=== PATIENT | female | born 1975 | race Caucasian/White ===

== ENCOUNTER 2019-12-30 09:31 | Emergency (ER) | payer MEDICAID, OTHER ==
[~2019-12-30] VITALS: Ht 165.1 cm; Wt 82.0 kg
[2019-12-30] MEDS ORDERED: SODIUM CHLORIDE 0.9% 1,000 ML IV ONE (09:40)
[2019-12-30 10:07] LABS: CHLORIDE 103 mEq/L (98-107)
[2019-12-30 10:12] LABS: ETHANOL BLOOD < 10 mg/dL
[2019-12-30 10:14] LABS: HCG SCREEN NEGATIVE
[2019-12-30 10:19] LABS: BASOPHILS % 0.3 % (0.0-2.0); EOSINOPHILS % 0.1 % (0.0-5.0); HEMATOCRIT. 38.8 % (36.0-48.0); HEMOGLOBIN. 12.5 g/dL (12.0-16.0); LYMPHOCYTES % 10.4 % (20.0-50.0); MEAN CORPUSCULAR HEMOGLOBIN 29.4 pg (28.0-32.0); MEAN PLATELET VOLUME 8.1 fl (7.4-10.4); MONOCYTES % 11.4 % (2.0-8.0); NEUTROPHILS % 77.8 % (40.0-76.0); PLATELET 268 x1000/uL (130-400); RED BLOOD CELL COUNT 4.26 mill/uL (4.2-5.4); RED CELL DISTRIBUTION WIDTH 15.1 % (11.6-14.6)
[2019-12-30] MEDS ORDERED: MORPHINE SULFATE 4 MG/ML CPJ (NOT FOR IM USE) IV STA (11:04)
[2019-12-30] MEDS ORDERED: ONDANSETRON HCL 4MG/2ML INJ IV STA (11:04)
[2019-12-30] MEDS ORDERED: ASPIRIN 81MG TABLET PO ONE (11:15)
[2019-12-30] MEDS ORDERED: KETOROLAC 30MG/ML VIAL IV ONE (11:15)
[2019-12-30 11:51] LABS: CLARITY URINE CLEAR (CLEAR); COLOR URINE YELLOW (YELLOW); KETONES URINE NEGATIVE (NEGATIVE); LEUKOCYTE ESTERASE URINE TRACE (NEGATIVE); NITRITE URINE NEGATIVE (NEGATIVE); OCCULT BLOOD URINE TRACE (NEGATIVE); PH URINE 7.5 (4.5-8.0); PROTEIN URINE NEGATIVE (NEGATIVE); SPECIFIC GRAVITY URINE 1.012 (1.005-1.030); UROBILINOGEN URINE 0.2 E.U./dL (0.2-1.0)
[2019-12-30 12:55] LABS: METHADONE URINE SCREEN NEGATIVE (NEGATIVE)
[2019-12-30 12:56] LABS: *AMPHETAMINES SCREEN URINE NEGATIVE (NEGATIVE); *BARBITURATES SCREEN URINE NEGATIVE (NEGATIVE); *BENZODIAZEPINES SCREEN URINE NEGATIVE (NEGATIVE); *COCAINE SCREEN URINE NEGATIVE (NEGATIVE); CANNABINOID URINE SCREEN NEGATIVE (NEGATIVE); OPIATES URINE SCREEN PRESUMTIVE POSITIVE (NEGATIVE); PHENCYCLIDINE URINE SCREEN NEGATIVE (NEGATIVE)
[2019-12-30 15:55] VITALS: BP 137/85
== END 2019-12-30 15:55 | disposition home or self-care (01) ==
LOC: ER 09:44
DX: R07.89 Other chest pain (principal); I10 Essential (primary) hypertension; J45.909 Unspecified asthma, uncomplicated; Z86.718 Personal history of other venous thrombosis and embolism; Z79.01 Long term (current) use of anticoagulants
CPT/HCPCS: 36415; 71045; 78582; 80053; 80305; 80320; 81003; 81025; 83690; 83880; 84484; 84703; 85025; 85379; 93005; 93970; 96374; 96375; 99284; A9540; A9558; J2270; J2405; J7030; Z7610; G0480

== ENCOUNTER 2020-03-27 19:12 | Inpatient (IN) | payer MEDICAID, OTHER ==
[~2020-03-27] VITALS: Ht 165.1 cm; Wt 97.5 kg
[2020-03-27] MEDS ORDERED: MORPHINE SULFATE 4 MG/ML CPJ (NOT FOR IM USE) IV STA (19:48)
[2020-03-27 20:23] LABS: HEMOGLOBIN. 12.6 g/dL (12.0-16.0); MEAN CORPUSCULAR HEMOGLOBIN 28.1 pg (28.0-32.0); MEAN CORPUSCULAR VOLUME 84.9 fL (81.0-99.0); PLATELET 247 x1000/uL (130-400); RED BLOOD CELL COUNT 4.48 mill/uL (4.2-5.4); RED CELL DISTRIBUTION WIDTH 16.6 % (11.6-14.6)
[2020-03-27 20:30] LABS: CHLORIDE 92 mEq/L (98-107)
[2020-03-27 20:38] LABS: BG BASE EXCESS -6.1 mmol/L (-2.0-2.0); BG CARBOXYHEMOGLOBIN 0.5 % (0.5-1.5); BG DEOXYHEMOGLOBIN 15.1 % (0.0-5.0); BG FRACTION INSPIRED OXYGEN 100; BG HCO3 ACT 16.2 mmol/L (22.0-26.0); BG METHEMOGLOBIN 0.1 % (0.0-1.5); BG OXYGEN SATURATION 84.8 % (92.0-98.5); BG OXYHEMOGLOBIN 84.3 % (94.0-97.0); BG PCO2 23.9 mmHg (35.0-45.0); BG PH 7.448 (7.350-7.450); BG PO2 50.5 mmHg (75.0-100.0); BG SAMPLE SITE RIGHT RADIAL; BG TOTAL HEMOGLOBIN 12.8 g/dL (12.0-18.0); BG VENT MODE MASK - NRB
[2020-03-27 20:41] LABS: D-DIMER 6.17 mg/L FEU (<0.50); INR 1.1; PROTHROMBIN TIME 12.1 sec (9.6-11.0)
[2020-03-27 20:49] LABS: PLATELET ESTIMATE NORMAL
[2020-03-27] MEDS ORDERED: ETOMIDATE 2MG/ML 10ML VIAL IV ONE ×2 (22:10→22:30)
[2020-03-27] MEDS ORDERED: VECURONIUM BROMIDE 10 MG/VIAL IV ONE (22:10)
[2020-03-27] MEDS ORDERED: SODIUM CHLORIDE 0.9% 1,000 ML IV ONE (22:15)
[2020-03-27] MEDS ORDERED: PROPOFOL 10MG/ML 100ML 100 ML IV ONE (22:30)
[2020-03-27] MEDS ORDERED: SUCCINYLCHOLINE CHLORIDE 200MG/10ML IV ONE (22:30)
[2020-03-27] MEDS ORDERED: ENOXAPARIN 100MG/ML SYR SUBCUT ONE (23:00)
[2020-03-27] MEDS ORDERED: MIDAZOLAM HCL 50 MG in DEXTROSE 5% WATER 40 ML IV ONE (23:30)
[2020-03-27] MEDS ORDERED: FENTANYL CITRATE/PF 500 MCG in SODIUM CHLORIDE 0.9% 40 ML IV PRN ×4 (23:30)
[2020-03-27 23:42] LABS: BG BASE EXCESS -7.5 mmol/L (-2.0-2.0); BG CARBOXYHEMOGLOBIN 0.5 % (0.5-1.5); BG DEOXYHEMOGLOBIN 6.7 % (0.0-5.0); BG FRACTION INSPIRED OXYGEN 100; BG HCO3 ACT 15.3 mmol/L (22.0-26.0); BG METHEMOGLOBIN 0.3 % (0.0-1.5); BG OXYGEN SATURATION 93.2 % (92.0-98.5); BG OXYHEMOGLOBIN 92.5 % (94.0-97.0); BG PH 7.387 (7.350-7.450); BG PO2 77.5 mmHg (75.0-100.0); BG SAMPLE SITE LEFT RADIAL; BG TIDAL VOLUME(mL) 400 mL; BG TOTAL HEMOGLOBIN 17.8 g/dL (12.0-18.0); BG VENT MODE VENT - A/C; BG VENT RATE 20 set
[2020-03-27 23:44] LABS: CLARITY URINE CLEAR (CLEAR); COLOR URINE YELLOW (YELLOW); KETONES URINE NEGATIVE (NEGATIVE); LEUKOCYTE ESTERASE URINE TRACE (NEGATIVE); NITRITE URINE NEGATIVE (NEGATIVE); OCCULT BLOOD URINE TRACE (NEGATIVE); PH URINE 6.5 (4.5-8.0); PROTEIN URINE 1+ (NEGATIVE); SPECIFIC GRAVITY URINE 1.014 (1.005-1.030); UROBILINOGEN URINE 0.2 E.U./dL (0.2-1.0)
[2020-03-28] VITALS (80 sets, daily range): BP systolic 115–145; BP diastolic 62–97
[2020-03-28] MEDS ORDERED: ENOXAPARIN 100MG/ML SYR SUBCUT NR (00:30)
[2020-03-28] MEDS ORDERED: PROPOFOL 10MG/ML 100ML 100 ML IV PRN ×2 (01:30→13:30)
[2020-03-28] MEDS ORDERED: PIPERACILLIN/TAZ 3.375G PREMIX 50 ML IV SCH (03:30)
[2020-03-28] MEDS ORDERED: SODIUM CHL 0.45% + KCL 20MEQ/L 1,000 ML IV SCH (04:30)
[2020-03-28] MEDS ORDERED: SODIUM BICARBONATE 8.4% 1 MEQ/ML 50ML SYR IV NR (04:45)
[2020-03-28] MEDS ORDERED: FENTANYL CITRATE/PF 1,000 MCG in SODIUM CHLORIDE 0.9% 80 ML IV PRN (04:45)
[2020-03-28] MEDS ORDERED: AZITHROMYCIN 500 MG in DEXT 5% WATER 250 ML IV NR (05:00)
[2020-03-28] MEDS: PROPOFOL 10MG/ML 100ML 100 ML IV PRN ×8 (05:05→23:02)
[2020-03-28] MEDS: FENTANYL 1,000 MCG in SODIUM CHLORIDE 0.9% 100 ML IV PRN ×3 (05:07→21:13)
[2020-03-28] MEDS: METHYLPREDNISOLONE SOD SUCC 40 MG/ML VIAL IV SCH ×3 (05:11→21:12)
[2020-03-28] MEDS: ENOXAPARIN 100MG/ML SYR SUBCUT SCH ×2 (05:12→17:17)
[2020-03-28] MEDS: PIPERACILLIN/TAZOBACTAM 3.375 G in DEXT 5% WATER 100 ML IV SCH ×3 (06:31→21:14)
[2020-03-28] MEDS ORDERED: VANCOMYCIN 1500MG in DEXTROSE 5% WATER 250ML IV NR (08:00)
[2020-03-28 08:20] LABS: BG BASE EXCESS 4.7 mmol/L (-2.0-2.0); BG CARBOXYHEMOGLOBIN 0.3 % (0.5-1.5); BG DEOXYHEMOGLOBIN 7.4 % (0.0-5.0); BG FRACTION INSPIRED OXYGEN 100; BG HCO3 ACT 29.1 mmol/L (22.0-26.0); BG METHEMOGLOBIN 0.1 % (0.0-1.5); BG OXYGEN SATURATION 92.6 % (92.0-98.5); BG OXYHEMOGLOBIN 92.2 % (94.0-97.0); BG PCO2 42.7 mmHg (35.0-45.0); BG PH 7.452 (7.350-7.450); BG PO2 67.3 mmHg (75.0-100.0); BG SAMPLE SITE RIGHT RADIAL; BG TIDAL VOLUME(mL) 400 mL; BG TOTAL HEMOGLOBIN 11.5 g/dL (12.0-18.0); BG VENT MODE VENT - A/C; BG VENT RATE 20 set
[2020-03-28] MEDS: PANTOPRAZOLE SODIUM 40 MG/VIAL IV SCH (08:43)
[2020-03-28] MEDS: IPRATROPIUM/ALBUTEROL 0.5-3(2.5)MG/3ML NEB NEB SCH ×2 (09:25→12:00)
[2020-03-28 10:18] LABS: HEMATOCRIT. 32.1 % (36.0-48.0); HEMOGLOBIN. 10.8 g/dL (12.0-16.0); MEAN CORPUSCULAR HEMOGLOBIN 28.1 pg (28.0-32.0); MEAN CORPUSCULAR VOLUME 83.4 fL (81.0-99.0); MEAN PLATELET VOLUME 7.9 fl (7.4-10.4); PLATELET 171 x1000/uL (130-400); RED BLOOD CELL COUNT 3.85 mill/uL (4.2-5.4); RED CELL DISTRIBUTION WIDTH 16.6 % (11.6-14.6)
[2020-03-28 10:32] LABS: CHLORIDE 98 mEq/L (98-107)
[2020-03-28] MEDS ORDERED: POTASSIUM CHLORIDE 20MEQ TABLET SR PO SCH (11:00)
[2020-03-28] MEDS ORDERED: FUROSEMIDE 20MG/2ML VIAL IVP SCH (11:00)
[2020-03-28 11:20] LABS: PLATELET ESTIMATE NORMAL
[2020-03-28] MEDS ORDERED: POTASSIUM CHLORIDE 20MEQ/PACKET NG NR (11:45)
[2020-03-28] MEDS: ASCORBIC ACID 500 MG TABLET PO SCH ×2 (12:12→21:15)
[2020-03-28] MEDS: ZINC SULFATE 220 MG ( 50 ) CAPSULE PO SCH (12:12)
[2020-03-28] MEDS ORDERED: VANCOMYCIN 1500MG in DEXTROSE 5% WATER 250ML IV SCH (16:00)
[2020-03-28] MEDS: HYDROXYCHLOROQUINE SULFATE 200MG TABLET PO SCH (17:57)
[2020-03-29] VITALS (57 sets, daily range): BP systolic 120–154; BP diastolic 56–98
[2020-03-29] MEDS: FENTANYL CITRATE/PF 2,500 MCG in SODIUM CHLORIDE 0.9% 200 ML IV PRN ×3 (01:31→18:43)
[2020-03-29] MEDS: PROPOFOL 10MG/ML 100ML 100 ML IV PRN ×6 (02:18→21:35)
[2020-03-29] MEDS: ENOXAPARIN 100MG/ML SYR SUBCUT SCH ×2 (05:29→18:10)
[2020-03-29] MEDS: PIPERACILLIN/TAZOBACTAM 3.375 G in DEXT 5% WATER 100 ML IV SCH ×3 (05:29→21:33)
[2020-03-29] MEDS: METHYLPREDNISOLONE SOD SUCC 40 MG/ML VIAL IV SCH ×3 (05:29→21:32)
[2020-03-29 06:02] LABS: HEMATOCRIT. 30.9 % (36.0-48.0); HEMOGLOBIN. 10.4 g/dL (12.0-16.0); MEAN CORPUSCULAR HEMOGLOBIN 28.5 pg (28.0-32.0); MEAN CORPUSCULAR VOLUME 84.5 fL (81.0-99.0); MEAN PLATELET VOLUME 8.7 fl (7.4-10.4); PLATELET 211 x1000/uL (130-400); RED BLOOD CELL COUNT 3.66 mill/uL (4.2-5.4); RED CELL DISTRIBUTION WIDTH 17.2 % (11.6-14.6)
[2020-03-29 06:03] LABS: CHLORIDE 100 mEq/L (98-107)
[2020-03-29 06:23] LABS: CREATINE KINASE 248 IU/L (26-192)
[2020-03-29 08:46] LABS: BG BASE EXCESS 6.5 mmol/L (-2.0-2.0); BG CARBOXYHEMOGLOBIN 0.3 % (0.5-1.5); BG FRACTION INSPIRED OXYGEN 100; BG HCO3 ACT 31.9 mmol/L (22.0-26.0); BG METHEMOGLOBIN 0.3 % (0.0-1.5); BG OXYHEMOGLOBIN 97.4 % (94.0-97.0); BG PCO2 49.6 mmHg (35.0-45.0); BG PH 7.426 (7.350-7.450); BG PO2 113.1 mmHg (75.0-100.0); BG SAMPLE SITE RIGHT RADIAL; BG TIDAL VOLUME(mL) 400 mL; BG TOTAL HEMOGLOBIN 11.2 g/dL (12.0-18.0); BG VENT MODE VENT - PCV; BG VENT RATE 16 set
[2020-03-29] MEDS: AZITHROMYCIN 250 MG in DEXT 5% WATER 250 ML IV SCH (08:58)
[2020-03-29] MEDS: HYDROXYCHLOROQUINE SULFATE 200MG TABLET PO SCH ×2 (08:59→17:00)
[2020-03-29] MEDS: PANTOPRAZOLE SODIUM 40 MG/VIAL IV SCH (08:59)
[2020-03-29] MEDS: ZINC SULFATE 220 MG ( 50 ) CAPSULE PO SCH (08:59)
[2020-03-29] MEDS: ASCORBIC ACID 500 MG TABLET PO SCH ×2 (08:59→21:32)
[2020-03-29 10:31] LABS: C REACTIVE PROTEIN QUANT > 190.0 mg/L (0.0-3.0)
[2020-03-29] MEDS ORDERED: FUROSEMIDE 20MG/2ML VIAL IVP NR (11:00)
[2020-03-29 11:52] LABS: PLATELET ESTIMATE NORMAL
[2020-03-29] MEDS: ALBUTEROL 6.7GM HFA INHALER ORI SCH ×3 (12:10→20:25)
[2020-03-29] MEDS ORDERED: PROPOFOL 10MG/ML 100ML 100 ML IV PRN (13:45)
[2020-03-30] VITALS (83 sets, daily range): BP systolic 111–149; BP diastolic 56–103
[2020-03-30] MEDS: PROPOFOL 10MG/ML 100ML 100 ML IV PRN ×7 (00:59→22:11)
[2020-03-30] MEDS: MIDAZOLAM HCL 100 MG in DEXT 5% WATER 80 ML IV PRN ×2 (01:44→15:25)
[2020-03-30] MEDS: FENTANYL CITRATE/PF 2,500 MCG in SODIUM CHLORIDE 0.9% 200 ML IV PRN ×3 (02:45→20:54)
[2020-03-30] MEDS: ALBUTEROL 6.7GM HFA INHALER ORI SCH ×4 (04:30→20:35)
[2020-03-30] MEDS: ENOXAPARIN 100MG/ML SYR SUBCUT SCH ×2 (05:30→17:32)
[2020-03-30] MEDS: PIPERACILLIN/TAZOBACTAM 3.375 G in DEXT 5% WATER 100 ML IV SCH ×3 (05:30→21:01)
[2020-03-30] MEDS: METHYLPREDNISOLONE SOD SUCC 40 MG/ML VIAL IV SCH ×3 (05:30→21:01)
[2020-03-30 05:45] LABS: HEMATOCRIT. 29.9 % (36.0-48.0); HEMOGLOBIN. 9.8 g/dL (12.0-16.0); MEAN CORPUSCULAR HEMOGLOBIN 28.1 pg (28.0-32.0); MEAN CORPUSCULAR VOLUME 85.4 fL (81.0-99.0); MEAN PLATELET VOLUME 8.4 fl (7.4-10.4); PLATELET 244 x1000/uL (130-400); RED CELL DISTRIBUTION WIDTH 17.1 % (11.6-14.6)
[2020-03-30 05:57] LABS: CHLORIDE 100 mEq/L (98-107)
[2020-03-30] MEDS: ZINC SULFATE 220 MG ( 50 ) CAPSULE PO SCH (08:16)
[2020-03-30] MEDS: ASCORBIC ACID 500 MG TABLET PO SCH ×2 (08:16→21:01)
[2020-03-30] MEDS: HYDROXYCHLOROQUINE SULFATE 200MG TABLET PO SCH ×2 (08:16→16:35)
[2020-03-30] MEDS: PANTOPRAZOLE SODIUM 40 MG/VIAL IV SCH (08:16)
[2020-03-30 08:26] LABS: BG BASE EXCESS 9.7 mmol/L (-2.0-2.0); BG CARBOXYHEMOGLOBIN 0.3 % (0.5-1.5); BG DEOXYHEMOGLOBIN 0.9 % (0.0-5.0); BG FRACTION INSPIRED OXYGEN 90; BG HCO3 ACT 35.5 mmol/L (22.0-26.0); BG METHEMOGLOBIN 0.2 % (0.0-1.5); BG OXYGEN SATURATION 99.1 % (92.0-98.5); BG OXYHEMOGLOBIN 98.6 % (94.0-97.0); BG PCO2 55.3 mmHg (35.0-45.0); BG PH 7.425 (7.350-7.450); BG PO2 233.3 mmHg (75.0-100.0); BG SAMPLE SITE RIGHT RADIAL; BG TIDAL VOLUME(mL) 400 mL; BG TOTAL HEMOGLOBIN 9.9 g/dL (12.0-18.0); BG VENT MODE VENT - PCV; BG VENT RATE 16 set
[2020-03-30 08:39] LABS: PLATELET ESTIMATE NORMAL
[2020-03-30 09:06] LABS: ANTI-DNA DOUBLE STRANDED QUANT 4 IU/mL (0-9); RNP ANTIBODY 2.6 AI (0.0-0.9); SMITH ANTIBODY < 0.2 AI (0.0-0.9)
[2020-03-30] MEDS: AZITHROMYCIN 250 MG in DEXT 5% WATER 250 ML IV SCH (09:59)
[2020-03-30] MEDS ORDERED: FUROSEMIDE 20MG/2ML VIAL IVP ONE (12:00)
[2020-03-31] VITALS (93 sets, daily range): BP systolic 98–143; BP diastolic 46–95
[2020-03-31] MEDS: MIDAZOLAM HCL 100 MG in DEXT 5% WATER 80 ML IV PRN ×3 (00:57→23:22)
[2020-03-31] MEDS: ALBUTEROL 6.7GM HFA INHALER ORI SCH ×4 (01:59→20:45)
[2020-03-31] MEDS: PROPOFOL 10MG/ML 100ML 100 ML IV PRN ×4 (03:36→19:08)
[2020-03-31] MEDS: PIPERACILLIN/TAZOBACTAM 3.375 G in DEXT 5% WATER 100 ML IV SCH ×3 (05:09→21:06)
[2020-03-31] MEDS: ENOXAPARIN 100MG/ML SYR SUBCUT SCH ×2 (05:09→17:01)
[2020-03-31] MEDS: METHYLPREDNISOLONE SOD SUCC 40 MG/ML VIAL IV SCH ×3 (05:09→21:06)
[2020-03-31 05:15] LABS: HEMOGLOBIN. 9.7 g/dL (12.0-16.0); MEAN CORPUSCULAR HEMOGLOBIN 28.2 pg (28.0-32.0); MEAN PLATELET VOLUME 8.6 fl (7.4-10.4); PLATELET 256 x1000/uL (130-400); RED BLOOD CELL COUNT 3.45 mill/uL (4.2-5.4)
[2020-03-31 05:33] LABS: CHLORIDE 102 mEq/L (98-107)
[2020-03-31] MEDS: FENTANYL CITRATE/PF 2,500 MCG in SODIUM CHLORIDE 0.9% 200 ML IV PRN ×2 (06:42→15:55)
[2020-03-31 07:27] LABS: PLATELET ESTIMATE NORMAL
[2020-03-31] MEDS: HYDROXYCHLOROQUINE SULFATE 200MG TABLET PO SCH ×2 (08:08→17:01)
[2020-03-31] MEDS: AZITHROMYCIN 250 MG in DEXT 5% WATER 250 ML IV SCH (08:08)
[2020-03-31] MEDS: PANTOPRAZOLE SODIUM 40 MG/VIAL IV SCH (08:08)
[2020-03-31] MEDS: ASCORBIC ACID 500 MG TABLET PO SCH ×2 (08:09→21:06)
[2020-03-31] MEDS: ZINC SULFATE 220 MG ( 50 ) CAPSULE PO SCH (08:09)
[2020-03-31 09:06] LABS: ANGIOTENSION CONVERTING ENZYME 32 U/L (14-82)
[2020-03-31 09:52] LABS: BG BASE EXCESS 8.1 mmol/L (-2.0-2.0); BG CARBOXYHEMOGLOBIN 0.3 % (0.5-1.5); BG DEOXYHEMOGLOBIN 6.4 % (0.0-5.0); BG FRACTION INSPIRED OXYGEN 50; BG HCO3 ACT 34.2 mmol/L (22.0-26.0); BG METHEMOGLOBIN 0.6 % (0.0-1.5); BG OXYGEN SATURATION 93.5 % (92.0-98.5); BG OXYHEMOGLOBIN 92.7 % (94.0-97.0); BG PH 7.411 (7.350-7.450); BG PO2 71.9 mmHg (75.0-100.0); BG SAMPLE SITE LEFT RADIAL; BG TIDAL VOLUME(mL) 400 mL; BG TOTAL HEMOGLOBIN 11.7 g/dL (12.0-18.0); BG VENT MODE VENT - PCV; BG VENT RATE 18 set
[2020-03-31 13:11] LABS: ANTI-CARDIOLIPIN AB IGA < 9 APL U/mL (0-11); ANTI-CARDIOLIPIN AB IGG < 9 GPL U/mL (0-14); ANTI-CARDIOLIPIN AB IGM 9 MPL U/mL (0-12); ATYPICAL P-ANCA <1:20 titer (Neg:<1:20); CYTOPLASMIC C-ANCA <1:20 titer (Neg:<1:20); PERINUCLEAR P-ANCA <1:20 titer (Neg:<1:20); PTT-LA 46.4 sec (0.0-51.9)
[2020-03-31 17:06] LABS: ANA IFA Negative (.)
[2020-04-01] VITALS (57 sets, daily range): BP systolic 103–149; BP diastolic 49–92
[2020-04-01] MEDS: PROPOFOL 10MG/ML 100ML 100 ML IV PRN ×5 (00:12→22:27)
[2020-04-01] MEDS: FENTANYL CITRATE/PF 2,500 MCG in SODIUM CHLORIDE 0.9% 200 ML IV PRN ×2 (00:42→19:21)
[2020-04-01] MEDS: ALBUTEROL 6.7GM HFA INHALER ORI SCH ×4 (03:45→16:29)
[2020-04-01] MEDS: PIPERACILLIN/TAZOBACTAM 3.375 G in DEXT 5% WATER 100 ML IV SCH ×3 (06:19→21:09)
[2020-04-01] MEDS: METHYLPREDNISOLONE SOD SUCC 40 MG/ML VIAL IV SCH ×3 (06:19→21:09)
[2020-04-01] MEDS: ENOXAPARIN 100MG/ML SYR SUBCUT SCH ×2 (06:20→18:00)
[2020-04-01] MEDS: ASCORBIC ACID 500 MG TABLET PO SCH ×2 (08:44→21:09)
[2020-04-01] MEDS: ZINC SULFATE 220 MG ( 50 ) CAPSULE PO SCH (08:44)
[2020-04-01] MEDS: AZITHROMYCIN 250 MG in DEXT 5% WATER 250 ML IV SCH (08:44)
[2020-04-01] MEDS: PANTOPRAZOLE SODIUM 40 MG/VIAL IV SCH (08:44)
[2020-04-01] MEDS: HYDROXYCHLOROQUINE SULFATE 200MG TABLET PO SCH ×2 (08:45→17:00)
[2020-04-01 08:47] LABS: BG BASE EXCESS 11.9 mmol/L (-2.0-2.0); BG CARBOXYHEMOGLOBIN 0.3 % (0.5-1.5); BG DEOXYHEMOGLOBIN 4.3 % (0.0-5.0); BG FRACTION INSPIRED OXYGEN 50; BG HCO3 ACT 38.4 mmol/L (22.0-26.0); BG OXYGEN SATURATION 95.7 % (92.0-98.5); BG OXYHEMOGLOBIN 95.4 % (94.0-97.0); BG PCO2 61.1 mmHg (35.0-45.0); BG PH 7.416 (7.350-7.450); BG PO2 82.9 mmHg (75.0-100.0); BG SAMPLE SITE RIGHT RADIAL; BG TIDAL VOLUME(mL) 400 mL; BG TOTAL HEMOGLOBIN 10.3 g/dL (12.0-18.0); BG VENT MODE PRVC; BG VENT RATE 18 set
[2020-04-01] MEDS: MIDAZOLAM HCL 100 MG in DEXT 5% WATER 80 ML IV PRN (21:57)
[2020-04-02] VITALS (59 sets, daily range): BP systolic 104–177; BP diastolic 56–117
[2020-04-02] MEDS: PROPOFOL 10MG/ML 100ML 100 ML IV PRN ×2 (03:42→09:45)
[2020-04-02] MEDS: MIDAZOLAM HCL 100 MG in DEXT 5% WATER 80 ML IV PRN ×2 (04:09→15:00)
[2020-04-02] MEDS: PIPERACILLIN/TAZOBACTAM 3.375 G in DEXT 5% WATER 100 ML IV SCH ×3 (05:04→21:52)
[2020-04-02] MEDS: ENOXAPARIN 100MG/ML SYR SUBCUT SCH ×2 (05:05→13:51)
[2020-04-02] MEDS: METHYLPREDNISOLONE SOD SUCC 40 MG/ML VIAL IV SCH ×3 (05:05→21:49)
[2020-04-02 05:13] LABS: HEMATOCRIT. 29.3 % (36.0-48.0); HEMOGLOBIN. 9.4 g/dL (12.0-16.0); MEAN CORPUSCULAR VOLUME 86.9 fL (81.0-99.0); MEAN PLATELET VOLUME 8.7 fl (7.4-10.4); PLATELET 298 x1000/uL (130-400); RED BLOOD CELL COUNT 3.37 mill/uL (4.2-5.4); RED CELL DISTRIBUTION WIDTH 16.9 % (11.6-14.6)
[2020-04-02 05:20] LABS: CHLORIDE 104 mEq/L (98-107)
[2020-04-02] MEDS: ALBUTEROL 6.7GM HFA INHALER ORI SCH ×4 (07:30→14:10)
[2020-04-02] MEDS: ASCORBIC ACID 500 MG TABLET PO SCH ×2 (08:45→20:51)
[2020-04-02] MEDS: PANTOPRAZOLE SODIUM 40 MG/VIAL IV SCH (08:46)
[2020-04-02] MEDS: ZINC SULFATE 220 MG ( 50 ) CAPSULE PO SCH (08:46)
[2020-04-02] MEDS: HYDROXYCHLOROQUINE SULFATE 200MG TABLET PO SCH ×2 (08:46→17:00)
[2020-04-02 09:46] LABS: BG BASE EXCESS 8.3 mmol/L (-2.0-2.0); BG CARBOXYHEMOGLOBIN 0.2 % (0.5-1.5); BG DEOXYHEMOGLOBIN 3.9 % (0.0-5.0); BG FRACTION INSPIRED OXYGEN 40; BG HCO3 ACT 33.6 mmol/L (22.0-26.0); BG METHEMOGLOBIN 0.2 % (0.0-1.5); BG OXYGEN SATURATION 96.1 % (92.0-98.5); BG OXYHEMOGLOBIN 95.7 % (94.0-97.0); BG PCO2 50.8 mmHg (35.0-45.0); BG PH 7.438 (7.350-7.450); BG PO2 82.9 mmHg (75.0-100.0); BG SAMPLE SITE RIGHT RADIAL; BG TIDAL VOLUME(mL) 400 mL; BG TOTAL HEMOGLOBIN 9.9 g/dL (12.0-18.0); BG VENT MODE PRVC; BG VENT RATE 18 set
[2020-04-02] MEDS: AMLODIPINE 5MG TABLET PO SCH ×2 (13:50→20:52)
[2020-04-02 14:06] LABS: PLATELET ESTIMATE NORMAL
[2020-04-02 17:10] LABS: ANTI-PROTEINASE 3 ABS < 3.5 U/mL (0.0-3.5)
[2020-04-02] MEDS ORDERED: CLONIDINE 0.1MG TABLET PO NR (19:00)
[2020-04-02 19:06] LABS: ANTI-MYELOPEROXIDASE AB < 9.0 U/mL (0.0-9.0)
[2020-04-03] VITALS (37 sets, daily range): BP systolic 123–170; BP diastolic 82–106
[2020-04-03 04:55] LABS: HEMATOCRIT. 35.3 % (36.0-48.0); HEMOGLOBIN. 11.4 g/dL (12.0-16.0); MEAN CORPUSCULAR HEMOGLOBIN 27.9 pg (28.0-32.0); MEAN CORPUSCULAR VOLUME 86.1 fL (81.0-99.0); PLATELET 385 x1000/uL (130-400); RED CELL DISTRIBUTION WIDTH 16.9 % (11.6-14.6)
[2020-04-03 05:08] LABS: CHLORIDE 101 mEq/L (98-107)
[2020-04-03] MEDS: METHYLPREDNISOLONE SOD SUCC 40 MG/ML VIAL IV SCH ×3 (05:54→20:34)
[2020-04-03] MEDS: ENOXAPARIN 100MG/ML SYR SUBCUT SCH ×2 (06:00→17:22)
[2020-04-03] MEDS: PANTOPRAZOLE SODIUM 40 MG/VIAL IV SCH (09:04)
[2020-04-03] MEDS: ASCORBIC ACID 500 MG TABLET PO SCH ×2 (09:05→20:34)
[2020-04-03] MEDS: ZINC SULFATE 220 MG ( 50 ) CAPSULE PO SCH (09:05)
[2020-04-03] MEDS: AMLODIPINE 5MG TABLET PO SCH ×2 (09:05→20:34)
[2020-04-03] MEDS: HYDROXYCHLOROQUINE SULFATE 200MG TABLET PO SCH ×2 (09:05→17:22)
[2020-04-03 09:28] LABS: BG BASE EXCESS 2.3 mmol/L (-2.0-2.0); BG CARBOXYHEMOGLOBIN 0.3 % (0.5-1.5); BG DEOXYHEMOGLOBIN 0.9 % (0.0-5.0); BG FRACTION INSPIRED OXYGEN 99.8; BG HCO3 ACT 26.4 mmol/L (22.0-26.0); BG METHEMOGLOBIN 0.2 % (0.0-1.5); BG OXYGEN SATURATION 99.1 % (92.0-98.5); BG OXYHEMOGLOBIN 98.6 % (94.0-97.0); BG PCO2 39.3 mmHg (35.0-45.0); BG PH 7.445 (7.350-7.450); BG PO2 215.2 mmHg (75.0-100.0); BG SAMPLE SITE RIGHT RADIAL; BG TOTAL HEMOGLOBIN 12.3 g/dL (12.0-18.0); BG VENT MODE MASK - NRB
[2020-04-03 11:24] LABS: PLATELET ESTIMATE NORMAL
[2020-04-04] VITALS: BP 114/85
[2020-04-04] MEDS: ALBUTEROL 6.7GM HFA INHALER ORI SCH ×5 (01:26→21:59)
[2020-04-04 04:00] VITALS: BP 138/90
[2020-04-04] MEDS: METHYLPREDNISOLONE SOD SUCC 40 MG/ML VIAL IV SCH ×3 (05:04→21:46)
[2020-04-04] MEDS: ENOXAPARIN 100MG/ML SYR SUBCUT SCH ×3 (05:05→17:37)
[2020-04-04 07:46] VITALS: BP 128/68
[2020-04-04] MEDS: PANTOPRAZOLE SODIUM 40 MG/VIAL IV SCH (08:33)
[2020-04-04] MEDS: ZINC SULFATE 220 MG ( 50 ) CAPSULE PO SCH (08:34)
[2020-04-04] MEDS: HYDROXYCHLOROQUINE SULFATE 200MG TABLET PO SCH ×2 (08:34→17:15)
[2020-04-04] MEDS: ASCORBIC ACID 500 MG TABLET PO SCH ×2 (08:34→21:46)
[2020-04-04] MEDS: AMLODIPINE 5MG TABLET PO SCH ×2 (10:17→21:46)
[2020-04-04 12:00] VITALS: BP 123/81
[2020-04-04 16:00] VITALS: BP 132/82
[2020-04-04 20:00] VITALS: BP 132/77
[2020-04-05] VITALS: BP 129/80
[2020-04-05] MEDS: ALBUTEROL 6.7GM HFA INHALER ORI SCH ×4 (02:50→21:28)
[2020-04-05 04:00] VITALS: BP_SYST 122; BP_SYST 131; BP_DIAS 78; BP_DIAS 80
[2020-04-05] MEDS: METHYLPREDNISOLONE SOD SUCC 40 MG/ML VIAL IV SCH ×3 (05:33→21:29)
[2020-04-05] MEDS: ENOXAPARIN 100MG/ML SYR SUBCUT SCH ×3 (05:33→17:38)
[2020-04-05 08:00] VITALS: BP 120/82
[2020-04-05] MEDS: HYDROXYCHLOROQUINE SULFATE 200MG TABLET PO SCH ×2 (08:52→17:38)
[2020-04-05] MEDS: AMLODIPINE 5MG TABLET PO SCH ×2 (08:52→21:29)
[2020-04-05] MEDS: ASCORBIC ACID 500 MG TABLET PO SCH ×2 (08:52→21:29)
[2020-04-05] MEDS: ZINC SULFATE 220 MG ( 50 ) CAPSULE PO SCH (08:52)
[2020-04-05] MEDS: PANTOPRAZOLE SODIUM 40 MG/VIAL IV SCH (08:52)
[2020-04-05 12:00] VITALS: BP 124/79
[2020-04-05 16:00] VITALS: BP 108/59
[2020-04-05] MEDS: HYDROCODONE/ACETAMINOPHEN 5/325MG TABLET PO PRN (17:39)
[2020-04-05 20:00] VITALS: BP 141/75
[2020-04-06] VITALS: BP 129/74
[2020-04-06] MEDS: ALBUTEROL 6.7GM HFA INHALER ORI SCH ×4 (02:42→22:52)
[2020-04-06 04:00] VITALS: BP 122/72
[2020-04-06] MEDS: METHYLPREDNISOLONE SOD SUCC 40 MG/ML VIAL IV SCH ×3 (05:55→21:52)
[2020-04-06] MEDS: ENOXAPARIN 100MG/ML SYR SUBCUT SCH ×2 (05:55→17:55)
[2020-04-06 08:00] VITALS: BP 108/72
[2020-04-06] MEDS: HYDROXYCHLOROQUINE SULFATE 200MG TABLET PO SCH ×2 (08:46→15:58)
[2020-04-06] MEDS: ASCORBIC ACID 500 MG TABLET PO SCH ×2 (08:46→21:47)
[2020-04-06] MEDS: ZINC SULFATE 220 MG ( 50 ) CAPSULE PO SCH (08:46)
[2020-04-06] MEDS: PANTOPRAZOLE SODIUM 40 MG/VIAL IV SCH (08:46)
[2020-04-06] MEDS: AMLODIPINE 5MG TABLET PO SCH ×2 (08:46→21:46)
[2020-04-06] MEDS: HYDROCODONE/ACETAMINOPHEN 5/325MG TABLET PO PRN ×3 (08:46→22:10)
[2020-04-06 12:00] VITALS: BP 111/73
[2020-04-06] MEDS ORDERED: MORPHINE SULFATE 2 MG/ML CPJ (NOT FOR IM USE) IV SCH (13:00)
[2020-04-06 16:00] VITALS: BP_SYST 117
[2020-04-06 20:00] VITALS: BP 120/78
[2020-04-07] VITALS: BP 113/82
[2020-04-07 04:00] VITALS: BP 138/74
[2020-04-07] MEDS: ALBUTEROL 6.7GM HFA INHALER ORI SCH ×4 (04:06→21:09)
[2020-04-07] MEDS: METHYLPREDNISOLONE SOD SUCC 40 MG/ML VIAL IV SCH ×3 (06:18→21:09)
[2020-04-07] MEDS: ENOXAPARIN 100MG/ML SYR SUBCUT SCH ×2 (06:19→17:14)
[2020-04-07] MEDS: HYDROCODONE/ACETAMINOPHEN 5/325MG TABLET PO PRN ×2 (06:34→10:10)
[2020-04-07 08:00] VITALS: BP 114/73
[2020-04-07] MEDS: AMLODIPINE 5MG TABLET PO SCH ×2 (09:08→21:10)
[2020-04-07] MEDS: ASCORBIC ACID 500 MG TABLET PO SCH ×2 (09:08→21:09)
[2020-04-07] MEDS: PANTOPRAZOLE SODIUM 40 MG/VIAL IV SCH (09:08)
[2020-04-07] MEDS: HYDROXYCHLOROQUINE SULFATE 200MG TABLET PO SCH ×2 (09:08→17:13)
[2020-04-07] MEDS: ZINC SULFATE 220 MG ( 50 ) CAPSULE PO SCH (09:08)
[2020-04-07 12:00] VITALS: BP 114/73
[2020-04-07] MEDS ORDERED: MORPHINE SULFATE 2 MG/ML CPJ (NOT FOR IM USE) IV NR (13:15)
[2020-04-07] MEDS ORDERED: OXYCODONE HCL/ACETAMINOPHEN 5/325MG TABLET PO PRN (13:15)
[2020-04-07 20:00] VITALS: BP 117/76
[2020-04-07] MEDS: OXYCODONE HCL/ACETAMINOPHEN 5/325MG TABLET PO PRN (21:11)
[2020-04-08] VITALS: BP 138/76
[2020-04-08] MEDS: ALBUTEROL 6.7GM HFA INHALER ORI SCH ×4 (03:19→22:28)
[2020-04-08] MEDS: OXYCODONE HCL/ACETAMINOPHEN 5/325MG TABLET PO PRN ×5 (03:21→22:26)
[2020-04-08 04:00] VITALS: BP 110/78
[2020-04-08] MEDS: METHYLPREDNISOLONE SOD SUCC 40 MG/ML VIAL IV SCH ×3 (05:46→22:28)
[2020-04-08] MEDS: ENOXAPARIN 100MG/ML SYR SUBCUT SCH ×2 (05:46→17:11)
[2020-04-08 08:00] VITALS: BP 110/75
[2020-04-08] MEDS: PANTOPRAZOLE SODIUM 40 MG/VIAL IV SCH (08:18)
[2020-04-08] MEDS: ZINC SULFATE 220 MG ( 50 ) CAPSULE PO SCH (08:20)
[2020-04-08] MEDS: AMLODIPINE 5MG TABLET PO SCH ×2 (08:20→22:28)
[2020-04-08] MEDS: ASCORBIC ACID 500 MG TABLET PO SCH ×2 (08:20→22:26)
[2020-04-08] MEDS: HYDROXYCHLOROQUINE SULFATE 200MG TABLET PO SCH ×2 (08:20→17:10)
[2020-04-08 08:22] LABS: HEMATOCRIT. 37.8 % (36.0-48.0); HEMOGLOBIN. 12.2 g/dL (12.0-16.0); MEAN CORPUSCULAR VOLUME 86.8 fL (81.0-99.0); MEAN PLATELET VOLUME 9.1 fl (7.4-10.4); PLATELET 307 x1000/uL (130-400); RED BLOOD CELL COUNT 4.36 mill/uL (4.2-5.4); RED CELL DISTRIBUTION WIDTH 18.1 % (11.6-14.6)
[2020-04-08 08:25] LABS: CHLORIDE 104 mEq/L (98-107)
[2020-04-08 12:00] VITALS: BP 122/66
[2020-04-08 16:00] VITALS: BP 113/72
[2020-04-08] MEDS ORDERED: POTASSIUM CHLORIDE 20MEQ TABLET SR PO NR (18:15)
[2020-04-08 19:16] LABS: PLATELET ESTIMATE NORMAL
[2020-04-08 20:00] VITALS: BP 111/63
[2020-04-09] VITALS: BP 113/65
[2020-04-09] MEDS: ALBUTEROL 6.7GM HFA INHALER ORI SCH ×4 (02:35→20:51)
[2020-04-09] MEDS: OXYCODONE HCL/ACETAMINOPHEN 5/325MG TABLET PO PRN ×5 (02:44→21:46)
[2020-04-09 04:00] VITALS: BP 123/82
[2020-04-09] MEDS: ENOXAPARIN 100MG/ML SYR SUBCUT SCH ×2 (06:01→17:40)
[2020-04-09] MEDS: METHYLPREDNISOLONE SOD SUCC 40 MG/ML VIAL IV SCH ×3 (06:01→21:45)
[2020-04-09 08:00] VITALS: BP 123/70
[2020-04-09] MEDS: ZINC SULFATE 220 MG ( 50 ) CAPSULE PO SCH (09:16)
[2020-04-09] MEDS: AMLODIPINE 5MG TABLET PO SCH ×2 (09:16→20:51)
[2020-04-09] MEDS: PANTOPRAZOLE SODIUM 40 MG/VIAL IV SCH (09:16)
[2020-04-09] MEDS: ASCORBIC ACID 500 MG TABLET PO SCH ×2 (09:19→20:51)
[2020-04-09] MEDS: HYDROXYCHLOROQUINE SULFATE 200MG TABLET PO SCH ×2 (09:19→17:40)
[2020-04-09 12:00] VITALS: BP 106/68
[2020-04-09 16:00] VITALS: BP 114/64
[2020-04-09 20:00] VITALS: BP 111/72
[2020-04-10] VITALS: BP 122/80
[2020-04-10] MEDS: OXYCODONE HCL/ACETAMINOPHEN 5/325MG TABLET PO PRN ×5 (01:57→22:13)
[2020-04-10] MEDS: ALBUTEROL 6.7GM HFA INHALER ORI SCH ×4 (03:00→20:34)
[2020-04-10 04:00] VITALS: BP 132/76
[2020-04-10] MEDS: METHYLPREDNISOLONE SOD SUCC 40 MG/ML VIAL IV SCH ×3 (06:01→22:13)
[2020-04-10] MEDS: ENOXAPARIN 100MG/ML SYR SUBCUT SCH ×2 (06:02→17:20)
[2020-04-10 08:00] VITALS: BP 139/82
[2020-04-10] MEDS: PANTOPRAZOLE SODIUM 40 MG/VIAL IV SCH (08:52)
[2020-04-10] MEDS: AMLODIPINE 5MG TABLET PO SCH ×2 (11:30→20:35)
[2020-04-10] MEDS: HYDROXYCHLOROQUINE SULFATE 200MG TABLET PO SCH ×2 (11:31→17:13)
[2020-04-10] MEDS: ASCORBIC ACID 500 MG TABLET PO SCH ×2 (11:31→20:35)
[2020-04-10] MEDS: ZINC SULFATE 220 MG ( 50 ) CAPSULE PO SCH (11:31)
[2020-04-10 12:00] VITALS: BP 109/63
[2020-04-10 16:00] VITALS: BP 124/63
[2020-04-10 20:00] VITALS: BP 113/68
[2020-04-11] VITALS: BP 114/69
[2020-04-11] MEDS: OXYCODONE HCL/ACETAMINOPHEN 5/325MG TABLET PO PRN ×5 (02:32→20:12)
[2020-04-11] MEDS: ALBUTEROL 6.7GM HFA INHALER ORI SCH ×4 (02:32→21:00)
[2020-04-11 04:00] VITALS: BP 116/58
[2020-04-11] MEDS ORDERED: MAGN200T5 PO (06:11)
[2020-04-11] MEDS ORDERED: FLUT1DIS6 INH (06:11)
[2020-04-11] MEDS ORDERED: LIDO700A30 TP (06:11)
[2020-04-11] MEDS ORDERED: PRED10TA PO (06:11)
[2020-04-11] MEDS ORDERED: APIX5TAB PO (06:11)
[2020-04-11] MEDS ORDERED: NAPR-681 PO (06:11)
[2020-04-11] MEDS ORDERED: FLUO40CA49 PO (06:11)
[2020-04-11] MEDS ORDERED: HYDR200T80 PO (06:11)
[2020-04-11] MEDS ORDERED: LORA10TA64 PO (06:11)
[2020-04-11] MEDS ORDERED: DOCU100T PO (06:11)
[2020-04-11] MEDS ORDERED: BACL-141 PO (06:11)
[2020-04-11] MEDS ORDERED: LEVO75TA7 PO (06:11)
[2020-04-11] MEDS ORDERED: CLON1TAB PO (06:11)
[2020-04-11] MEDS ORDERED: HYDR25TA PO (06:11)
[2020-04-11] MEDS ORDERED: LACT10SO7 PO (06:11)
[2020-04-11] MEDS ORDERED: OMEP20CA14 PO (06:11)
[2020-04-11] MEDS ORDERED: FLUT9.9S BOTHNSTRLS (06:11)
[2020-04-11] MEDS ORDERED: GABA800T97 PO (06:11)
[2020-04-11] MEDS ORDERED: SENN-155 PO (06:11)
[2020-04-11] MEDS ORDERED: METO-385 PO (06:11)
[2020-04-11] MEDS: METHYLPREDNISOLONE SOD SUCC 40 MG/ML VIAL IV SCH ×3 (06:34→21:59)
[2020-04-11] MEDS: ENOXAPARIN 100MG/ML SYR SUBCUT SCH ×2 (06:35→17:47)
[2020-04-11 08:00] VITALS: BP 106/57
[2020-04-11] MEDS: AMLODIPINE 5MG TABLET PO SCH ×2 (09:00→20:12)
[2020-04-11] MEDS: PANTOPRAZOLE SODIUM 40 MG/VIAL IV SCH (09:11)
[2020-04-11] MEDS: HYDROXYCHLOROQUINE SULFATE 200MG TABLET PO SCH ×2 (09:13→17:47)
[2020-04-11] MEDS: ZINC SULFATE 220 MG ( 50 ) CAPSULE PO SCH (09:13)
[2020-04-11] MEDS: ASCORBIC ACID 500 MG TABLET PO SCH ×2 (09:14→20:11)
[2020-04-11 12:00] VITALS: BP 105/70
[2020-04-11] MEDS: GABAPENTIN 400MG CAPSULE PO SCH ×2 (15:00→17:47)
[2020-04-11 16:00] VITALS: BP 116/76
[2020-04-11] MEDS ORDERED: MEDICATION NOT ON FORMULARY EA (Gabapentin 800 MG) PO SCH (17:00)
[2020-04-11 20:00] VITALS: BP 146/75
[2020-04-11] MEDS: CLONAZEPAM 1MG TABLET PO SCH (21:58)
[2020-04-12 00:13] VITALS: BP 120/77
[2020-04-12] MEDS: OXYCODONE HCL/ACETAMINOPHEN 5/325MG TABLET PO PRN ×5 (00:22→20:51)
[2020-04-12] MEDS: ALBUTEROL 6.7GM HFA INHALER ORI SCH ×4 (02:08→20:52)
[2020-04-12 04:00] VITALS: BP 105/68
[2020-04-12] MEDS: ENOXAPARIN 100MG/ML SYR SUBCUT SCH ×2 (05:04→16:28)
[2020-04-12] MEDS: METHYLPREDNISOLONE SOD SUCC 40 MG/ML VIAL IV SCH ×2 (05:04→14:23)
[2020-04-12] MEDS: LEVOTHYROXINE SODIUM 75MCG TABLET PO SCH (06:16)
[2020-04-12 08:00] VITALS: BP 109/72
[2020-04-12] MEDS: GABAPENTIN 400MG CAPSULE PO SCH ×3 (08:39→16:29)
[2020-04-12] MEDS: AMLODIPINE 5MG TABLET PO SCH ×3 (08:39→20:50)
[2020-04-12] MEDS: PANTOPRAZOLE SODIUM 40 MG/VIAL IV SCH (08:39)
[2020-04-12] MEDS: ASCORBIC ACID 500 MG TABLET PO SCH ×2 (08:40→20:51)
[2020-04-12] MEDS: HYDROXYCHLOROQUINE SULFATE 200MG TABLET PO SCH ×2 (08:40→16:30)
[2020-04-12] MEDS: ZINC SULFATE 220 MG ( 50 ) CAPSULE PO SCH (08:40)
[2020-04-12 12:00] VITALS: BP 115/75
[2020-04-12] MEDS ORDERED: OXYCODONE HCL/ACETAMINOPHEN 5/325MG TABLET PO PRN (12:45)
[2020-04-12 16:00] VITALS: BP 142/96
[2020-04-12 20:00] VITALS: BP 118/78
[2020-04-12] MEDS: CLONAZEPAM 1MG TABLET PO SCH (20:50)
[2020-04-13] VITALS: BP 129/84
[2020-04-13] MEDS: OXYCODONE HCL/ACETAMINOPHEN 5/325MG TABLET PO PRN ×5 (01:04→20:53)
[2020-04-13] MEDS: ALBUTEROL 6.7GM HFA INHALER ORI SCH ×4 (03:00→20:58)
[2020-04-13 04:00] VITALS: BP 113/70
[2020-04-13] MEDS: METHYLPREDNISOLONE SOD SUCC 40 MG/ML VIAL IV SCH ×2 (05:37→17:47)
[2020-04-13] MEDS: ENOXAPARIN 100MG/ML SYR SUBCUT SCH ×2 (05:38→17:55)
[2020-04-13] MEDS: LEVOTHYROXINE SODIUM 75MCG TABLET PO SCH (05:40)
[2020-04-13 06:29] LABS: HEMATOCRIT. 30.7 % (36.0-48.0); HEMOGLOBIN. 10.1 g/dL (12.0-16.0); MEAN CORPUSCULAR HEMOGLOBIN 28.9 pg (28.0-32.0); MEAN CORPUSCULAR VOLUME 87.4 fL (81.0-99.0); MEAN PLATELET VOLUME 10.1 fl (7.4-10.4); PLATELET 248 x1000/uL (130-400); RED BLOOD CELL COUNT 3.51 mill/uL (4.2-5.4); RED CELL DISTRIBUTION WIDTH 18.8 % (11.6-14.6)
[2020-04-13 07:33] LABS: CHLORIDE 106 mEq/L (98-107)
[2020-04-13 08:04] VITALS: BP 102/60
[2020-04-13] MEDS: AMLODIPINE 5MG TABLET PO SCH ×2 (09:00→20:53)
[2020-04-13] MEDS: PANTOPRAZOLE SODIUM 40 MG/VIAL IV SCH (10:35)
[2020-04-13] MEDS: ASCORBIC ACID 500 MG TABLET PO SCH ×2 (10:36→20:52)
[2020-04-13] MEDS: GABAPENTIN 400MG CAPSULE PO SCH ×3 (10:36→17:51)
[2020-04-13] MEDS: ZINC SULFATE 220 MG ( 50 ) CAPSULE PO SCH (10:37)
[2020-04-13] MEDS: HYDROXYCHLOROQUINE SULFATE 200MG TABLET PO SCH ×2 (10:37→17:54)
[2020-04-13 12:06] LABS: NUCLEATED RED BLOOD CELLS 1 /100 WBC; PLATELET ESTIMATE NORMAL
[2020-04-13 12:20] VITALS: BP 109/62
[2020-04-13 20:00] VITALS: BP 108/60
[2020-04-13] MEDS: CLONAZEPAM 1MG TABLET PO SCH (20:53)
[2020-04-13] MEDS: NYSTATIN 100,000 UNITS/GM OINT 15GM TOP SCH (20:57)
[2020-04-14] VITALS (7 sets, daily range): BP systolic 107–130; BP diastolic 44–82
[2020-04-14] MEDS: OXYCODONE HCL/ACETAMINOPHEN 5/325MG TABLET PO PRN ×6 (01:17→21:35)
[2020-04-14] MEDS: ALBUTEROL 6.7GM HFA INHALER ORI SCH ×4 (04:59→20:31)
[2020-04-14] MEDS: ENOXAPARIN 100MG/ML SYR SUBCUT SCH ×2 (05:36→17:16)
[2020-04-14] MEDS: METHYLPREDNISOLONE SOD SUCC 40 MG/ML VIAL IV SCH ×2 (05:36→17:15)
[2020-04-14] MEDS: LEVOTHYROXINE SODIUM 75MCG TABLET PO SCH (05:42)
[2020-04-14] MEDS: AMLODIPINE 5MG TABLET PO SCH ×2 (09:00→20:28)
[2020-04-14] MEDS: GABAPENTIN 400MG CAPSULE PO SCH ×3 (09:04→17:15)
[2020-04-14] MEDS: ZINC SULFATE 220 MG ( 50 ) CAPSULE PO SCH (09:04)
[2020-04-14] MEDS: ASCORBIC ACID 500 MG TABLET PO SCH ×2 (09:04→20:28)
[2020-04-14] MEDS: NYSTATIN 100,000 UNITS/GM OINT 15GM TOP SCH ×2 (09:04→20:47)
[2020-04-14] MEDS: PANTOPRAZOLE SODIUM 40 MG/VIAL IV SCH (09:04)
[2020-04-14] MEDS: HYDROXYCHLOROQUINE SULFATE 200MG TABLET PO SCH ×2 (09:04→17:15)
[2020-04-14] MEDS ORDERED: MEDICATION NOT ON FORMULARY EA (Fluticasone/Salmeterol (Advair 500-50) 1 PUFF) INH SCH (17:00)
[2020-04-14] MEDS: CLONAZEPAM 1MG TABLET PO SCH (20:31)
[2020-04-15] VITALS (7 sets, daily range): BP systolic 98–113; BP diastolic 54–69
[2020-04-15] MEDS: OXYCODONE HCL/ACETAMINOPHEN 5/325MG TABLET PO PRN ×4 (01:51→20:35)
[2020-04-15] MEDS: METHYLPREDNISOLONE SOD SUCC 40 MG/ML VIAL IV SCH ×2 (06:40→17:46)
[2020-04-15] MEDS: ENOXAPARIN 100MG/ML SYR SUBCUT SCH ×2 (06:41→17:47)
[2020-04-15] MEDS: LEVOTHYROXINE SODIUM 75MCG TABLET PO SCH (06:41)
[2020-04-15] MEDS: AMLODIPINE 5MG TABLET PO SCH (08:15)
[2020-04-15] MEDS: PANTOPRAZOLE SODIUM 40 MG/VIAL IV SCH (08:18)
[2020-04-15] MEDS: ZINC SULFATE 220 MG ( 50 ) CAPSULE PO SCH (08:18)
[2020-04-15] MEDS: LORATADINE 10MG TABLET PO SCH (08:18)
[2020-04-15] MEDS: HYDROCHLOROTHIAZIDE 25MG TABLET PO SCH (08:18)
[2020-04-15] MEDS: ASCORBIC ACID 500 MG TABLET PO SCH ×2 (08:18→20:36)
[2020-04-15] MEDS: HYDROXYCHLOROQUINE SULFATE 200MG TABLET PO SCH ×2 (08:18→17:46)
[2020-04-15] MEDS: NYSTATIN 100,000 UNITS/GM OINT 15GM TOP SCH ×2 (08:19→20:36)
[2020-04-15] MEDS: FLUOXETINE HCL 20MG CAPSULE PO SCH (08:19)
[2020-04-15] MEDS: GABAPENTIN 400MG CAPSULE PO SCH ×3 (08:29→17:46)
[2020-04-15] MEDS ORDERED: MEDICATION NOT ON FORMULARY EA (Fluoxetine Hcl 1 CAP) PO SCH (09:00)
[2020-04-15] MEDS ORDERED: MEDICATION NOT ON FORMULARY EA (Fluticasone Propionate (Flonase Allergy Relief) 2 SPR) BOTHNSTRLS SCH (09:00)
[2020-04-15] MEDS ORDERED: LORATADINE 10 MG PO SCH (09:00)
[2020-04-15] MEDS: FLUTICASONE PROPIONATE 50MCG/SPRAY BOTTLE BOTHNSTRLS SCH (09:40)
[2020-04-15] MEDS ORDERED: MORPHINE SULFATE 2 MG/ML CPJ (NOT FOR IM USE) IV NR (11:30)
[2020-04-15] MEDS: IBUPROFEN 600MG TABLET PO SCH ×2 (15:08→23:48)
[2020-04-15] MEDS: CLONAZEPAM 1MG TABLET PO SCH (20:35)
[2020-04-15] MEDS: ALBUTEROL 6.7GM HFA INHALER ORI SCH (20:52)
[2020-04-16] MEDS: OXYCODONE HCL/ACETAMINOPHEN 5/325MG TABLET PO PRN ×5 (00:38→18:04)
[2020-04-16] MEDS: ALBUTEROL 6.7GM HFA INHALER ORI SCH ×4 (03:00→20:07)
[2020-04-16 04:00] VITALS: BP 113/75
[2020-04-16] MEDS: IBUPROFEN 600MG TABLET PO SCH ×3 (05:55→19:00)
[2020-04-16] MEDS: ENOXAPARIN 100MG/ML SYR SUBCUT SCH ×2 (05:56→17:58)
[2020-04-16] MEDS: METHYLPREDNISOLONE SOD SUCC 40 MG/ML VIAL IV SCH ×2 (05:56→18:04)
[2020-04-16] MEDS: LEVOTHYROXINE SODIUM 75MCG TABLET PO SCH (06:42)
[2020-04-16 08:02] VITALS: BP 114/61
[2020-04-16] MEDS: ASCORBIC ACID 500 MG TABLET PO SCH ×2 (08:51→20:02)
[2020-04-16] MEDS: GABAPENTIN 400MG CAPSULE PO SCH ×3 (08:52→17:54)
[2020-04-16] MEDS: LACTULOSE 20G/30ML UDC PO PRN ×2 (08:52→20:03)
[2020-04-16] MEDS: ZINC SULFATE 220 MG ( 50 ) CAPSULE PO SCH (08:52)
[2020-04-16] MEDS: FLUOXETINE HCL 20MG CAPSULE PO SCH (08:52)
[2020-04-16] MEDS: HYDROXYCHLOROQUINE SULFATE 200MG TABLET PO SCH ×2 (08:52→17:55)
[2020-04-16] MEDS: LORATADINE 10MG TABLET PO SCH (08:52)
[2020-04-16] MEDS: FLUTICASONE PROPIONATE 50MCG/SPRAY BOTTLE BOTHNSTRLS SCH (08:53)
[2020-04-16] MEDS: HYDROCHLOROTHIAZIDE 25MG TABLET PO SCH (08:53)
[2020-04-16] MEDS: NYSTATIN 100,000 UNITS/GM OINT 15GM TOP SCH ×2 (08:54→20:03)
[2020-04-16] MEDS: PANTOPRAZOLE SODIUM 40 MG/VIAL IV SCH (08:54)
[2020-04-16 12:04] VITALS: BP 107/64
[2020-04-16] MEDS: MORPHINE SULFATE 2 MG/ML CPJ (NOT FOR IM USE) IV PRN ×2 (14:51→20:32)
[2020-04-16 16:03] VITALS: BP 108/71
[2020-04-16 16:44] LABS: HEMOGLOBIN. 9.7 g/dL (12.0-16.0); MEAN CORPUSCULAR HEMOGLOBIN 29.8 pg (28.0-32.0); MEAN CORPUSCULAR VOLUME 88.8 fL (81.0-99.0); MEAN PLATELET VOLUME 9.3 fl (7.4-10.4); PLATELET 226 x1000/uL (130-400); RED BLOOD CELL COUNT 3.27 mill/uL (4.2-5.4); RED CELL DISTRIBUTION WIDTH 19.5 % (11.6-14.6)
[2020-04-16 16:51] LABS: CHLORIDE 102 mEq/L (98-107)
[2020-04-16 17:19] LABS: PLATELET ESTIMATE NORMAL
[2020-04-16] MEDS: CEFTRIAXONE 1 G PREMIX 50 ML IV SCH (20:01)
[2020-04-16] MEDS: CLONAZEPAM 1MG TABLET PO SCH (20:02)
[2020-04-16 20:15] VITALS: BP 107/70
[2020-04-17 00:04] LABS: CLARITY URINE CLEAR (CLEAR); COLOR URINE YELLOW (YELLOW); KETONES URINE NEGATIVE (NEGATIVE); LEUKOCYTE ESTERASE URINE TRACE (NEGATIVE); NITRITE URINE NEGATIVE (NEGATIVE); OCCULT BLOOD URINE NEGATIVE (NEGATIVE); PH URINE 6.5 (4.5-8.0); PROTEIN URINE NEGATIVE (NEGATIVE); SPECIFIC GRAVITY URINE 1.007 (1.005-1.030); UROBILINOGEN URINE 0.2 E.U./dL (0.2-1.0)
[2020-04-17] MEDS: OXYCODONE HCL/ACETAMINOPHEN 5/325MG TABLET PO PRN ×3 (00:28→17:18)
[2020-04-17 03:23] VITALS: BP 100/64
[2020-04-17] MEDS: ALBUTEROL 6.7GM HFA INHALER ORI SCH (03:26)
[2020-04-17] MEDS: MORPHINE SULFATE 2 MG/ML CPJ (NOT FOR IM USE) IV PRN ×4 (03:27→20:22)
[2020-04-17] MEDS: IBUPROFEN 600MG TABLET PO SCH ×3 (06:00→12:47)
[2020-04-17] MEDS: METHYLPREDNISOLONE SOD SUCC 40 MG/ML VIAL IV SCH ×2 (06:18→17:17)
[2020-04-17] MEDS: ENOXAPARIN 100MG/ML SYR SUBCUT SCH ×2 (06:18→17:18)
[2020-04-17] MEDS: LEVOTHYROXINE SODIUM 75MCG TABLET PO SCH (06:26)
[2020-04-17 07:20] LABS: HEMATOCRIT. 29.7 % (36.0-48.0); HEMOGLOBIN. 9.9 g/dL (12.0-16.0); MEAN CORPUSCULAR HEMOGLOBIN 29.3 pg (28.0-32.0); MEAN CORPUSCULAR VOLUME 88.3 fL (81.0-99.0); PLATELET 225 x1000/uL (130-400); RED BLOOD CELL COUNT 3.36 mill/uL (4.2-5.4); RED CELL DISTRIBUTION WIDTH 19.9 % (11.6-14.6)
[2020-04-17 08:00] VITALS: BP 118/56
[2020-04-17] MEDS: FLUTICASONE PROPIONATE 50MCG/SPRAY BOTTLE BOTHNSTRLS SCH (09:12)
[2020-04-17] MEDS: PANTOPRAZOLE SODIUM 40 MG/VIAL IV SCH (09:14)
[2020-04-17] MEDS: NYSTATIN 100,000 UNITS/GM OINT 15GM TOP SCH ×2 (09:15→21:30)
[2020-04-17] MEDS: FLUOXETINE HCL 20MG CAPSULE PO SCH (09:15)
[2020-04-17] MEDS: LORATADINE 10MG TABLET PO SCH (09:16)
[2020-04-17] MEDS: HYDROCHLOROTHIAZIDE 25MG TABLET PO SCH (09:16)
[2020-04-17] MEDS: GABAPENTIN 400MG CAPSULE PO SCH ×3 (09:16→17:17)
[2020-04-17] MEDS: ASCORBIC ACID 500 MG TABLET PO SCH ×2 (09:16→20:23)
[2020-04-17] MEDS: HYDROXYCHLOROQUINE SULFATE 200MG TABLET PO SCH ×2 (09:17→17:17)
[2020-04-17] MEDS: ZINC SULFATE 220 MG ( 50 ) CAPSULE PO SCH (09:17)
[2020-04-17] MEDS: LACTULOSE 20G/30ML UDC PO PRN ×2 (10:27→21:31)
[2020-04-17] MEDS ORDERED: ACETAMINOPHEN 325MG TABLET PO PRN (13:45)
[2020-04-17 14:01] LABS: PLATELET ESTIMATE NORMAL
[2020-04-17 16:00] VITALS: BP 121/72
[2020-04-17] MEDS: THROAT LOZENGES-BENZOCAINE/MENTH/CETYLPYRD CL LOZENGES MM SCH (18:07)
[2020-04-17 20:00] VITALS: BP 125/75
[2020-04-17] MEDS: BUDESONIDE 0.5MG/2ML NEB HHN SCH (20:44)
[2020-04-17] MEDS: IPRATROPIUM/ALBUTEROL 0.5-3(2.5)MG/3ML NEB HHN SCH (20:44)
[2020-04-17] MEDS ORDERED: ZOLPIDEM TARTRATE 5MG TABLET PO PRN (21:00)
[2020-04-17] MEDS: CLONAZEPAM 1MG TABLET PO SCH (21:19)
[2020-04-17] MEDS: CEFTRIAXONE 1 G PREMIX 50 ML IV SCH (21:20)
[2020-04-17] MEDS: NAPROXEN 250MG TABLET PO SCH (21:30)
[2020-04-18] VITALS: BP 112/70
[2020-04-18] MEDS: THROAT LOZENGES-BENZOCAINE/MENTH/CETYLPYRD CL LOZENGES MM SCH ×5 (00:42→23:55)
[2020-04-18] MEDS: MORPHINE SULFATE 2 MG/ML CPJ (NOT FOR IM USE) IV PRN ×5 (02:03→23:53)
[2020-04-18] MEDS: IPRATROPIUM/ALBUTEROL 0.5-3(2.5)MG/3ML NEB HHN SCH ×3 (02:24→16:37)
[2020-04-18 04:00] VITALS: BP 117/70
[2020-04-18] MEDS: OXYCODONE HCL/ACETAMINOPHEN 5/325MG TABLET PO PRN ×4 (04:09→21:35)
[2020-04-18] MEDS: ENOXAPARIN 100MG/ML SYR SUBCUT SCH ×2 (06:10→17:13)
[2020-04-18] MEDS: METHYLPREDNISOLONE SOD SUCC 40 MG/ML VIAL IV SCH ×2 (06:10→17:13)
[2020-04-18] MEDS: LEVOTHYROXINE SODIUM 75MCG TABLET PO SCH (06:10)
[2020-04-18 08:00] VITALS: BP 116/79
[2020-04-18] MEDS: NYSTATIN 100,000 UNITS/GM OINT 15GM TOP SCH ×2 (08:30→21:37)
[2020-04-18] MEDS: FLUTICASONE PROPIONATE 50MCG/SPRAY BOTTLE BOTHNSTRLS SCH (08:30)
[2020-04-18] MEDS: HYDROXYCHLOROQUINE SULFATE 200MG TABLET PO SCH ×2 (08:32→17:14)
[2020-04-18] MEDS: FLUOXETINE HCL 20MG CAPSULE PO SCH (08:32)
[2020-04-18] MEDS: HYDROCHLOROTHIAZIDE 25MG TABLET PO SCH (08:32)
[2020-04-18] MEDS: LORATADINE 10MG TABLET PO SCH (08:32)
[2020-04-18] MEDS: GABAPENTIN 400MG CAPSULE PO SCH ×3 (08:32→17:14)
[2020-04-18] MEDS: ASCORBIC ACID 500 MG TABLET PO SCH ×2 (08:32→21:34)
[2020-04-18] MEDS: ZINC SULFATE 220 MG ( 50 ) CAPSULE PO SCH (08:32)
[2020-04-18] MEDS: NAPROXEN 250MG TABLET PO SCH ×2 (08:32→21:34)
[2020-04-18] MEDS: PANTOPRAZOLE SODIUM 40 MG/VIAL IV SCH (08:36)
[2020-04-18] MEDS: LACTULOSE 20G/30ML UDC PO PRN ×2 (10:54→21:39)
[2020-04-18] MEDS: BUDESONIDE 0.5MG/2ML NEB HHN SCH (11:01)
[2020-04-18 12:00] VITALS: BP 115/71
[2020-04-18 16:00] VITALS: BP_SYST 114; BP_DIAS 74; BP_DIAS 75
[2020-04-18 20:00] VITALS: BP 116/80
[2020-04-18] MEDS: CEFTRIAXONE 1 G PREMIX 50 ML IV SCH (21:33)
[2020-04-18] MEDS: CLONAZEPAM 1MG TABLET PO SCH (21:34)
[2020-04-19] VITALS: BP 121/74
[2020-04-19] MEDS: IPRATROPIUM/ALBUTEROL 0.5-3(2.5)MG/3ML NEB HHN SCH ×4 (00:23→16:35)
[2020-04-19] MEDS: BUDESONIDE 0.5MG/2ML NEB HHN SCH ×3 (00:39→10:11)
[2020-04-19] MEDS: OXYCODONE HCL/ACETAMINOPHEN 5/325MG TABLET PO PRN ×5 (02:03→20:15)
[2020-04-19 04:00] VITALS: BP 120/73
[2020-04-19] MEDS: MORPHINE SULFATE 2 MG/ML CPJ (NOT FOR IM USE) IV PRN ×5 (04:19→22:15)
[2020-04-19] MEDS: ENOXAPARIN 100MG/ML SYR SUBCUT SCH ×2 (06:09→18:05)
[2020-04-19] MEDS: THROAT LOZENGES-BENZOCAINE/MENTH/CETYLPYRD CL LOZENGES MM SCH ×3 (06:09→18:07)
[2020-04-19] MEDS: METHYLPREDNISOLONE SOD SUCC 40 MG/ML VIAL IV SCH ×2 (06:10→18:03)
[2020-04-19] MEDS: LEVOTHYROXINE SODIUM 75MCG TABLET PO SCH (06:10)
[2020-04-19 08:00] VITALS: BP 118/69
[2020-04-19] MEDS: PANTOPRAZOLE SODIUM 40 MG/VIAL IV SCH (08:24)
[2020-04-19] MEDS: HYDROCHLOROTHIAZIDE 25MG TABLET PO SCH (08:24)
[2020-04-19] MEDS: ZINC SULFATE 220 MG ( 50 ) CAPSULE PO SCH (08:25)
[2020-04-19] MEDS: LORATADINE 10MG TABLET PO SCH (08:25)
[2020-04-19] MEDS: NAPROXEN 250MG TABLET PO SCH ×2 (08:25→20:11)
[2020-04-19] MEDS: FLUOXETINE HCL 20MG CAPSULE PO SCH (08:25)
[2020-04-19] MEDS: GABAPENTIN 400MG CAPSULE PO SCH ×3 (08:25→18:02)
[2020-04-19] MEDS: ASCORBIC ACID 500 MG TABLET PO SCH ×2 (08:25→20:11)
[2020-04-19] MEDS: HYDROXYCHLOROQUINE SULFATE 200MG TABLET PO SCH ×2 (08:26→18:02)
[2020-04-19] MEDS: NYSTATIN 100,000 UNITS/GM OINT 15GM TOP SCH ×2 (10:16→20:11)
[2020-04-19] MEDS: LACTULOSE 20G/30ML UDC PO PRN ×2 (10:27→18:03)
[2020-04-19 12:00] VITALS: BP 133/78
[2020-04-19 16:00] VITALS: BP 130/79
[2020-04-19 20:00] VITALS: BP 129/75
[2020-04-19] MEDS: CEFTRIAXONE 1 G PREMIX 50 ML IV SCH (20:11)
[2020-04-19] MEDS: CLONAZEPAM 1MG TABLET PO SCH (20:11)
[2020-04-20] VITALS: BP 121/74
[2020-04-20] MEDS: THROAT LOZENGES-BENZOCAINE/MENTH/CETYLPYRD CL LOZENGES MM SCH ×4 (00:45→18:15)
[2020-04-20] MEDS: OXYCODONE HCL/ACETAMINOPHEN 5/325MG TABLET PO PRN ×5 (00:45→20:55)
[2020-04-20] MEDS: MORPHINE SULFATE 2 MG/ML CPJ (NOT FOR IM USE) IV PRN ×5 (02:59→23:17)
[2020-04-20 04:00] VITALS: BP 111/64
[2020-04-20] MEDS: ENOXAPARIN 100MG/ML SYR SUBCUT SCH ×2 (05:53→18:15)
[2020-04-20] MEDS: LEVOTHYROXINE SODIUM 75MCG TABLET PO SCH (05:53)
[2020-04-20] MEDS: METHYLPREDNISOLONE SOD SUCC 40 MG/ML VIAL IV SCH ×2 (05:53→17:33)
[2020-04-20 08:00] VITALS: BP 125/83
[2020-04-20] MEDS: LACTULOSE 20G/30ML UDC PO PRN (09:17)
[2020-04-20] MEDS: HYDROXYCHLOROQUINE SULFATE 200MG TABLET PO SCH ×2 (09:18→16:17)
[2020-04-20] MEDS: NAPROXEN 250MG TABLET PO SCH ×2 (09:18→20:56)
[2020-04-20] MEDS: ASCORBIC ACID 500 MG TABLET PO SCH ×2 (09:19→20:55)
[2020-04-20] MEDS: PANTOPRAZOLE SODIUM 40 MG/VIAL IV SCH (09:19)
[2020-04-20] MEDS: HYDROCHLOROTHIAZIDE 25MG TABLET PO SCH (09:19)
[2020-04-20] MEDS: CLONAZEPAM 0.5MG TABLET PO SCH (09:20)
[2020-04-20] MEDS: FLUOXETINE HCL 20MG CAPSULE PO SCH (09:20)
[2020-04-20] MEDS: LORATADINE 10MG TABLET PO SCH (09:20)
[2020-04-20] MEDS: ZINC SULFATE 220 MG ( 50 ) CAPSULE PO SCH (09:20)
[2020-04-20] MEDS: NYSTATIN 100,000 UNITS/GM OINT 15GM TOP SCH ×2 (09:21→21:07)
[2020-04-20] MEDS: GABAPENTIN 400MG CAPSULE PO SCH ×3 (09:21→16:17)
[2020-04-20 12:00] VITALS: BP 131/75
[2020-04-20] MEDS: IPRATROPIUM/ALBUTEROL 0.5-3(2.5)MG/3ML NEB HHN SCH ×2 (15:58→21:58)
[2020-04-20 16:00] VITALS: BP 128/74
[2020-04-20 20:00] VITALS: BP 128/85
[2020-04-20] MEDS: CEFTRIAXONE 1 G PREMIX 50 ML IV SCH (21:07)
[2020-04-20] MEDS: CLONAZEPAM 1MG TABLET PO SCH (21:07)
[2020-04-21] MEDS: OXYCODONE HCL/ACETAMINOPHEN 5/325MG TABLET PO PRN ×5 (01:29→21:16)
[2020-04-21 04:00] VITALS: BP 123/70
[2020-04-21] MEDS: THROAT LOZENGES-BENZOCAINE/MENTH/CETYLPYRD CL LOZENGES MM SCH ×5 (04:00→21:16)
[2020-04-21] MEDS: MORPHINE SULFATE 2 MG/ML CPJ (NOT FOR IM USE) IV PRN ×2 (04:03→09:41)
[2020-04-21] MEDS: IPRATROPIUM/ALBUTEROL 0.5-3(2.5)MG/3ML NEB HHN SCH ×3 (05:01→16:00)
[2020-04-21] MEDS: LEVOTHYROXINE SODIUM 75MCG TABLET PO SCH (06:09)
[2020-04-21] MEDS: METHYLPREDNISOLONE SOD SUCC 40 MG/ML VIAL IV SCH ×2 (06:09→17:08)
[2020-04-21] MEDS: ENOXAPARIN 100MG/ML SYR SUBCUT SCH ×2 (06:11→17:08)
[2020-04-21 08:00] VITALS: BP 128/84
[2020-04-21] MEDS: GABAPENTIN 400MG CAPSULE PO SCH ×3 (09:41→17:40)
[2020-04-21] MEDS: PANTOPRAZOLE SODIUM 40 MG/VIAL IV SCH (09:41)
[2020-04-21] MEDS: CLONAZEPAM 0.5MG TABLET PO SCH ×2 (09:41→21:15)
[2020-04-21] MEDS: HYDROCHLOROTHIAZIDE 25MG TABLET PO SCH (09:42)
[2020-04-21] MEDS: ASCORBIC ACID 500 MG TABLET PO SCH ×2 (09:43→21:16)
[2020-04-21] MEDS: HYDROXYCHLOROQUINE SULFATE 200MG TABLET PO SCH ×2 (09:43→17:09)
[2020-04-21] MEDS: FLUOXETINE HCL 20MG CAPSULE PO SCH (09:43)
[2020-04-21] MEDS: LORATADINE 10MG TABLET PO SCH (09:43)
[2020-04-21] MEDS: ZINC SULFATE 220 MG ( 50 ) CAPSULE PO SCH (09:43)
[2020-04-21] MEDS: NAPROXEN 250MG TABLET PO SCH ×2 (09:43→21:15)
[2020-04-21] MEDS: NYSTATIN 100,000 UNITS/GM OINT 15GM TOP SCH ×2 (10:34→21:16)
[2020-04-21 12:00] VITALS: BP 134/87
[2020-04-21 16:00] VITALS: BP 117/77
[2020-04-21] MEDS: BUDESONIDE 0.5MG/2ML NEB HHN SCH (16:00)
[2020-04-21 20:00] VITALS: BP 126/89
[2020-04-21] MEDS: CEFTRIAXONE 1 G PREMIX 50 ML IV SCH (21:15)
[2020-04-21] MEDS: CLONAZEPAM 1MG TABLET PO SCH (21:27)
[2020-04-21] MEDS: BACLOFEN 10MG TABLET PO PRN (21:45)
[2020-04-22] VITALS: BP 113/74
[2020-04-22] MEDS: IPRATROPIUM/ALBUTEROL 0.5-3(2.5)MG/3ML NEB HHN SCH ×3 (00:43→15:46)
[2020-04-22] MEDS: OXYCODONE HCL/ACETAMINOPHEN 5/325MG TABLET PO PRN ×5 (01:32→20:23)
[2020-04-22 04:00] VITALS: BP 123/75
[2020-04-22] MEDS: LEVOTHYROXINE SODIUM 75MCG TABLET PO SCH (05:33)
[2020-04-22] MEDS: METHYLPREDNISOLONE SOD SUCC 40 MG/ML VIAL IV SCH (05:33)
[2020-04-22] MEDS: ENOXAPARIN 100MG/ML SYR SUBCUT SCH ×2 (05:33→17:43)
[2020-04-22] MEDS: THROAT LOZENGES-BENZOCAINE/MENTH/CETYLPYRD CL LOZENGES MM SCH ×4 (05:34→23:04)
[2020-04-22] MEDS: BUDESONIDE 0.5MG/2ML NEB HHN SCH (07:58)
[2020-04-22 08:00] VITALS: BP 112/74
[2020-04-22] MEDS: LACTULOSE 20G/30ML UDC PO PRN ×2 (08:53→21:14)
[2020-04-22] MEDS: NYSTATIN 100,000 UNITS/GM OINT 15GM TOP SCH ×2 (08:53→20:23)
[2020-04-22] MEDS: GABAPENTIN 400MG CAPSULE PO SCH ×3 (08:54→17:42)
[2020-04-22] MEDS: PANTOPRAZOLE SODIUM 40 MG/VIAL IV SCH (08:54)
[2020-04-22] MEDS: ASCORBIC ACID 500 MG TABLET PO SCH ×2 (08:55→20:13)
[2020-04-22] MEDS: HYDROCHLOROTHIAZIDE 25MG TABLET PO SCH (08:55)
[2020-04-22] MEDS: FLUOXETINE HCL 20MG CAPSULE PO SCH (08:55)
[2020-04-22] MEDS: HYDROXYCHLOROQUINE SULFATE 200MG TABLET PO SCH ×2 (08:55→17:42)
[2020-04-22] MEDS: NAPROXEN 250MG TABLET PO SCH ×2 (08:56→20:13)
[2020-04-22] MEDS: ZINC SULFATE 220 MG ( 50 ) CAPSULE PO SCH (08:56)
[2020-04-22] MEDS: LORATADINE 10MG TABLET PO SCH (08:56)
[2020-04-22] MEDS: CLONAZEPAM 0.5MG TABLET PO SCH (09:08)
[2020-04-22] MEDS: BACLOFEN 10MG TABLET PO PRN (11:15)
[2020-04-22 12:00] VITALS: BP 132/86
[2020-04-22 16:00] VITALS: BP 130/81
[2020-04-22] MEDS: MORPHINE SULFATE 2 MG/ML CPJ (NOT FOR IM USE) IV PRN ×2 (16:13→22:46)
[2020-04-22] MEDS: LIDOCAINE 5% PATCH TOP SCH (16:52)
[2020-04-22 20:00] VITALS: BP 121/84
[2020-04-22] MEDS: CLONAZEPAM 1MG TABLET PO SCH (20:13)
[2020-04-23] VITALS: BP 131/79
[2020-04-23] MEDS: BUDESONIDE 0.5MG/2ML NEB HHN SCH ×2 (00:06→08:16)
[2020-04-23] MEDS: IPRATROPIUM/ALBUTEROL 0.5-3(2.5)MG/3ML NEB HHN SCH ×3 (00:08→15:43)
[2020-04-23] MEDS: OXYCODONE HCL/ACETAMINOPHEN 5/325MG TABLET PO PRN ×3 (02:57→16:08)
[2020-04-23 04:00] VITALS: BP 114/65
[2020-04-23] MEDS: THROAT LOZENGES-BENZOCAINE/MENTH/CETYLPYRD CL LOZENGES MM SCH ×3 (06:37→17:54)
[2020-04-23] MEDS: LEVOTHYROXINE SODIUM 75MCG TABLET PO SCH (06:37)
[2020-04-23] MEDS: ENOXAPARIN 100MG/ML SYR SUBCUT SCH ×2 (06:38→17:55)
[2020-04-23] MEDS: MORPHINE SULFATE 2 MG/ML CPJ (NOT FOR IM USE) IV PRN ×3 (06:46→19:33)
[2020-04-23] MEDS: PANTOPRAZOLE SODIUM 40 MG/VIAL IV SCH (09:12)
[2020-04-23] MEDS: HYDROXYCHLOROQUINE SULFATE 200MG TABLET PO SCH ×2 (09:13→16:07)
[2020-04-23] MEDS: ASCORBIC ACID 500 MG TABLET PO SCH ×2 (09:13→20:29)
[2020-04-23] MEDS: FLUOXETINE HCL 20MG CAPSULE PO SCH (09:13)
[2020-04-23] MEDS: NYSTATIN 100,000 UNITS/GM OINT 15GM TOP SCH ×2 (09:14→20:29)
[2020-04-23] MEDS: LIDOCAINE 5% PATCH TOP SCH (09:14)
[2020-04-23] MEDS: HYDROCHLOROTHIAZIDE 25MG TABLET PO SCH (09:14)
[2020-04-23] MEDS: GABAPENTIN 400MG CAPSULE PO SCH ×3 (09:15→16:07)
[2020-04-23] MEDS: ZINC SULFATE 220 MG ( 50 ) CAPSULE PO SCH (09:15)
[2020-04-23] MEDS: CLONAZEPAM 0.5MG TABLET PO SCH (09:15)
[2020-04-23] MEDS: NAPROXEN 250MG TABLET PO SCH ×2 (09:15→20:29)
[2020-04-23] MEDS: PREDNISONE 10MG TABLET PO SCH ×2 (09:20→16:07)
[2020-04-23] MEDS: LACTULOSE 20G/30ML UDC PO PRN ×2 (09:20→17:55)
[2020-04-23] MEDS: LORATADINE 10MG TABLET PO SCH (09:20)
[2020-04-23 20:00] VITALS: BP 115/74
[2020-04-23] MEDS: BACLOFEN 10MG TABLET PO PRN (20:29)
[2020-04-23] MEDS: CLONAZEPAM 1MG TABLET PO SCH (21:19)
[2020-04-24] VITALS: BP 123/75
[2020-04-24] MEDS: THROAT LOZENGES-BENZOCAINE/MENTH/CETYLPYRD CL LOZENGES MM SCH ×4 (00:01→17:32)
[2020-04-24] MEDS: OXYCODONE HCL/ACETAMINOPHEN 5/325MG TABLET PO PRN ×4 (00:11→17:42)
[2020-04-24] MEDS: IPRATROPIUM/ALBUTEROL 0.5-3(2.5)MG/3ML NEB HHN SCH ×4 (00:47→22:38)
[2020-04-24] MEDS: BUDESONIDE 0.5MG/2ML NEB HHN SCH ×3 (00:47→22:39)
[2020-04-24] MEDS: MORPHINE SULFATE 2 MG/ML CPJ (NOT FOR IM USE) IV PRN ×4 (02:08→22:02)
[2020-04-24 04:00] VITALS: BP 131/69
[2020-04-24] MEDS: ENOXAPARIN 100MG/ML SYR SUBCUT SCH ×2 (06:05→17:32)
[2020-04-24] MEDS: LEVOTHYROXINE SODIUM 75MCG TABLET PO SCH (06:05)
[2020-04-24 08:00] VITALS: BP 119/70
[2020-04-24] MEDS: CLONAZEPAM 0.5MG TABLET PO SCH (08:37)
[2020-04-24] MEDS: FLUOXETINE HCL 20MG CAPSULE PO SCH (08:37)
[2020-04-24] MEDS: GABAPENTIN 400MG CAPSULE PO SCH ×3 (08:37→17:30)
[2020-04-24] MEDS: ZINC SULFATE 220 MG ( 50 ) CAPSULE PO SCH (08:37)
[2020-04-24] MEDS: HYDROXYCHLOROQUINE SULFATE 200MG TABLET PO SCH ×2 (08:37→17:31)
[2020-04-24] MEDS: LORATADINE 10MG TABLET PO SCH (08:37)
[2020-04-24] MEDS: ASCORBIC ACID 500 MG TABLET PO SCH ×2 (08:37→21:51)
[2020-04-24] MEDS: PREDNISONE 10MG TABLET PO SCH ×2 (08:38→17:30)
[2020-04-24] MEDS: PANTOPRAZOLE SODIUM 40 MG/VIAL IV SCH (08:38)
[2020-04-24] MEDS: NAPROXEN 250MG TABLET PO SCH ×2 (08:38→21:51)
[2020-04-24] MEDS: HYDROCHLOROTHIAZIDE 25MG TABLET PO SCH (08:38)
[2020-04-24] MEDS: LIDOCAINE 5% PATCH TOP SCH (08:39)
[2020-04-24] MEDS: LACTULOSE 20G/30ML UDC PO PRN ×2 (08:43→22:03)
[2020-04-24] MEDS: NYSTATIN 100,000 UNITS/GM OINT 15GM TOP SCH (09:00)
[2020-04-24 12:00] VITALS: BP 127/79
[2020-04-24 16:00] VITALS: BP 127/67
[2020-04-24 20:00] VITALS: BP 122/75
[2020-04-24] MEDS: NYSTATIN POWDER 15GM TOP SCH (21:49)
[2020-04-24] MEDS: CLONAZEPAM 1MG TABLET PO SCH (21:51)
[2020-04-25] VITALS: BP 122/74
[2020-04-25] MEDS: IPRATROPIUM/ALBUTEROL 0.5-3(2.5)MG/3ML NEB HHN SCH ×3 (00:42→15:48)
[2020-04-25] MEDS: THROAT LOZENGES-BENZOCAINE/MENTH/CETYLPYRD CL LOZENGES MM SCH ×4 (01:56→17:46)
[2020-04-25] MEDS: OXYCODONE HCL/ACETAMINOPHEN 5/325MG TABLET PO PRN ×3 (02:06→16:21)
[2020-04-25 04:00] VITALS: BP 127/70
[2020-04-25] MEDS: LEVOTHYROXINE SODIUM 75MCG TABLET PO SCH (06:34)
[2020-04-25] MEDS: ENOXAPARIN 100MG/ML SYR SUBCUT SCH ×2 (06:34→17:40)
[2020-04-25] MEDS: MORPHINE SULFATE 2 MG/ML CPJ (NOT FOR IM USE) IV PRN ×3 (06:50→20:23)
[2020-04-25 06:56] LABS: HEMOGLOBIN. 9.5 g/dL (12.0-16.0); INR 0.9; MEAN CORPUSCULAR HEMOGLOBIN 30.2 pg (28.0-32.0); MEAN CORPUSCULAR VOLUME 88.7 fL (81.0-99.0); MEAN PLATELET VOLUME 8.4 fl (7.4-10.4); PLATELET 271 x1000/uL (130-400); PROTHROMBIN TIME 10.3 sec (9.6-11.0); RED BLOOD CELL COUNT 3.16 mill/uL (4.2-5.4); RED CELL DISTRIBUTION WIDTH 20.3 % (11.6-14.6)
[2020-04-25 07:13] LABS: CHLORIDE 98 mEq/L (98-107)
[2020-04-25 08:00] VITALS: BP 113/82
[2020-04-25] MEDS: NAPROXEN 250MG TABLET PO SCH ×2 (10:17→20:19)
[2020-04-25] MEDS: FLUOXETINE HCL 20MG CAPSULE PO SCH (10:17)
[2020-04-25] MEDS: ASCORBIC ACID 500 MG TABLET PO SCH (10:18)
[2020-04-25] MEDS: CLONAZEPAM 0.5MG TABLET PO SCH (10:18)
[2020-04-25] MEDS: HYDROCHLOROTHIAZIDE 25MG TABLET PO SCH (10:18)
[2020-04-25] MEDS: GABAPENTIN 400MG CAPSULE PO SCH ×3 (10:18→17:45)
[2020-04-25] MEDS: PREDNISONE 10MG TABLET PO SCH (10:18)
[2020-04-25] MEDS: LORATADINE 10MG TABLET PO SCH (10:18)
[2020-04-25] MEDS: HYDROXYCHLOROQUINE SULFATE 200MG TABLET PO SCH ×2 (10:18→16:20)
[2020-04-25] MEDS: ZINC SULFATE 220 MG ( 50 ) CAPSULE PO SCH (10:19)
[2020-04-25] MEDS: PANTOPRAZOLE SODIUM 40 MG/VIAL IV SCH (10:19)
[2020-04-25] MEDS: LACTULOSE 20G/30ML UDC PO PRN (10:20)
[2020-04-25] MEDS: NYSTATIN POWDER 15GM TOP SCH ×2 (10:33→20:19)
[2020-04-25] MEDS: LIDOCAINE 5% PATCH TOP SCH (10:34)
[2020-04-25 12:00] VITALS: BP 135/75
[2020-04-25 14:10] LABS: PLATELET ESTIMATE NORMAL
[2020-04-25] MEDS: POLYETHYLENE GLYCOL 3350 (17GM) 1 DOSE PACK PO SCH (15:33)
[2020-04-25 16:00] VITALS: BP 128/82
[2020-04-25 20:00] VITALS: BP 122/80
[2020-04-25] MEDS: CLONAZEPAM 1MG TABLET PO SCH (20:20)
[2020-04-26] VITALS: BP 117/73
[2020-04-26] MEDS: IPRATROPIUM/ALBUTEROL 0.5-3(2.5)MG/3ML NEB HHN SCH ×4 (01:00→14:36)
[2020-04-26] MEDS: THROAT LOZENGES-BENZOCAINE/MENTH/CETYLPYRD CL LOZENGES MM SCH ×4 (01:16→17:17)
[2020-04-26] MEDS: OXYCODONE HCL/ACETAMINOPHEN 5/325MG TABLET PO PRN ×4 (01:22→22:00)
[2020-04-26 04:00] VITALS: BP 113/71
[2020-04-26] MEDS: ENOXAPARIN 100MG/ML SYR SUBCUT SCH ×2 (06:09→17:17)
[2020-04-26] MEDS: LEVOTHYROXINE SODIUM 75MCG TABLET PO SCH (06:09)
[2020-04-26] MEDS: MORPHINE SULFATE 2 MG/ML CPJ (NOT FOR IM USE) IV PRN ×3 (06:10→18:36)
[2020-04-26 08:00] VITALS: BP 122/61
[2020-04-26] MEDS: HYDROCHLOROTHIAZIDE 25MG TABLET PO SCH (08:17)
[2020-04-26] MEDS: POLYETHYLENE GLYCOL 3350 (17GM) 1 DOSE PACK PO SCH (08:17)
[2020-04-26] MEDS: FLUOXETINE HCL 20MG CAPSULE PO SCH (08:17)
[2020-04-26] MEDS: NAPROXEN 250MG TABLET PO SCH ×2 (08:17→21:47)
[2020-04-26] MEDS: GABAPENTIN 400MG CAPSULE PO SCH ×3 (08:18→17:17)
[2020-04-26] MEDS: LORATADINE 10MG TABLET PO SCH (08:18)
[2020-04-26] MEDS: LIDOCAINE 5% PATCH TOP SCH (08:19)
[2020-04-26] MEDS: LACTULOSE 20G/30ML UDC PO PRN ×2 (10:23→21:47)
[2020-04-26 12:00] VITALS: BP 128/69
[2020-04-26] MEDS: NYSTATIN POWDER 15GM TOP SCH ×2 (12:02→21:48)
[2020-04-26] MEDS: BUDESONIDE 0.5MG/2ML NEB HHN SCH (14:45)
[2020-04-26] MEDS ORDERED: BUDESONIDE 0.5MG/2ML NEB ONE (14:48)
[2020-04-26] MEDS ORDERED: IPRATROPIUM/ALBUTEROL 0.5-3(2.5)MG/3ML NEB ONE (14:49)
[2020-04-26 16:00] VITALS: BP 112/69
[2020-04-26] MEDS: CLONAZEPAM 0.5MG TABLET PO SCH (16:40)
[2020-04-26] MEDS: PREDNISONE 5MG TABLET PO SCH (17:17)
[2020-04-26 20:00] VITALS: BP 104/56
[2020-04-26] MEDS: CLONAZEPAM 1MG TABLET PO SCH (21:47)
[2020-04-26] MEDS: HYDROXYCHLOROQUINE SULFATE 200MG TABLET PO SCH (21:47)
[2020-04-27] VITALS: BP 118/70
[2020-04-27] MEDS: THROAT LOZENGES-BENZOCAINE/MENTH/CETYLPYRD CL LOZENGES MM SCH ×4 (00:23→17:24)
[2020-04-27] MEDS: MORPHINE SULFATE 2 MG/ML CPJ (NOT FOR IM USE) IV PRN ×3 (00:42→12:57)
[2020-04-27] MEDS: IPRATROPIUM/ALBUTEROL 0.5-3(2.5)MG/3ML NEB HHN SCH ×4 (01:00→17:34)
[2020-04-27] MEDS: OXYCODONE HCL/ACETAMINOPHEN 5/325MG TABLET PO PRN ×4 (03:07→21:27)
[2020-04-27 04:00] VITALS: BP 124/81
[2020-04-27] MEDS: ENOXAPARIN 100MG/ML SYR SUBCUT SCH ×2 (05:50→17:29)
[2020-04-27] MEDS: LEVOTHYROXINE SODIUM 75MCG TABLET PO SCH (06:51)
[2020-04-27 08:00] VITALS: BP 113/72
[2020-04-27] MEDS: GABAPENTIN 400MG CAPSULE PO SCH ×3 (09:05→17:25)
[2020-04-27] MEDS: MULTIVITAMINS,THER W-MINERALS TABLET PO SCH (09:05)
[2020-04-27] MEDS: LACTULOSE 20G/30ML UDC PO PRN (09:05)
[2020-04-27] MEDS: HYDROCHLOROTHIAZIDE 25MG TABLET PO SCH (09:05)
[2020-04-27] MEDS: CLONAZEPAM 0.5MG TABLET PO SCH (09:05)
[2020-04-27] MEDS: LORATADINE 10MG TABLET PO SCH (09:05)
[2020-04-27] MEDS: PREDNISONE 5MG TABLET PO SCH ×2 (09:05→17:27)
[2020-04-27] MEDS: HYDROXYCHLOROQUINE SULFATE 200MG TABLET PO SCH ×2 (09:05→20:26)
[2020-04-27] MEDS: POLYETHYLENE GLYCOL 3350 (17GM) 1 DOSE PACK PO SCH (09:06)
[2020-04-27] MEDS: NAPROXEN 250MG TABLET PO SCH ×2 (09:06→20:27)
[2020-04-27] MEDS: FLUOXETINE HCL 20MG CAPSULE PO SCH (09:06)
[2020-04-27] MEDS: LIDOCAINE 5% PATCH TOP SCH (09:20)
[2020-04-27] MEDS: NYSTATIN POWDER 15GM TOP SCH ×2 (09:36→20:36)
[2020-04-27] MEDS ORDERED: GADOBENATE DIMEGLUMINE 529 MG/ML 10ML IV ONE (09:50)
[2020-04-27 09:52] LABS: HCG SCREEN NEGATIVE
[2020-04-27 12:00] VITALS: BP 123/71
[2020-04-27] MEDS: BUDESONIDE 0.5MG/2ML NEB HHN SCH (12:18)
[2020-04-27] MEDS ORDERED: BISACODYL 10MG SUPP PR PRN (15:00)
[2020-04-27] MEDS: DOCUSATE SODIUM 250MG CAPSULE PO SCH (15:47)
[2020-04-27 16:00] VITALS: BP 117/67
[2020-04-27 20:00] VITALS: BP 128/88
[2020-04-27] MEDS: CLONAZEPAM 1MG TABLET PO SCH (20:26)
[2020-04-27] MEDS: BACLOFEN 10MG TABLET PO PRN (23:29)
[2020-04-28] VITALS: BP 119/77
[2020-04-28] MEDS: OXYCODONE HCL/ACETAMINOPHEN 5/325MG TABLET PO PRN ×4 (02:14→17:56)
[2020-04-28 04:00] VITALS: BP 118/63
[2020-04-28] MEDS: ENOXAPARIN 100MG/ML SYR SUBCUT SCH (05:31)
[2020-04-28] MEDS: GABAPENTIN 400MG CAPSULE PO SCH ×3 (05:31→21:48)
[2020-04-28] MEDS: THROAT LOZENGES-BENZOCAINE/MENTH/CETYLPYRD CL LOZENGES MM SCH ×4 (05:32→17:45)
[2020-04-28] MEDS: LACTULOSE 20G/30ML UDC PO PRN (05:36)
[2020-04-28] MEDS: LEVOTHYROXINE SODIUM 75MCG TABLET PO SCH (06:28)
[2020-04-28 08:00] VITALS: BP 116/70
[2020-04-28] MEDS: NAPROXEN 250MG TABLET PO SCH ×2 (09:23→21:47)
[2020-04-28] MEDS: CLONAZEPAM 0.5MG TABLET PO SCH (09:23)
[2020-04-28] MEDS: HYDROXYCHLOROQUINE SULFATE 200MG TABLET PO SCH ×2 (09:24→21:47)
[2020-04-28] MEDS: DOCUSATE SODIUM 250MG CAPSULE PO SCH (09:24)
[2020-04-28] MEDS: BACLOFEN 10MG TABLET PO PRN (09:24)
[2020-04-28] MEDS: PREDNISONE 5MG TABLET PO SCH ×2 (09:24→17:45)
[2020-04-28] MEDS: FLUOXETINE HCL 20MG CAPSULE PO SCH (09:24)
[2020-04-28] MEDS: LORATADINE 10MG TABLET PO SCH (09:25)
[2020-04-28] MEDS: POLYETHYLENE GLYCOL 3350 (17GM) 1 DOSE PACK PO SCH (09:25)
[2020-04-28] MEDS: LIDOCAINE 5% PATCH TOP SCH (09:25)
[2020-04-28] MEDS: MULTIVITAMINS,THER W-MINERALS TABLET PO SCH (09:25)
[2020-04-28] MEDS: NYSTATIN POWDER 15GM TOP SCH ×2 (09:26→21:48)
[2020-04-28] MEDS: BUDESONIDE 0.5MG/2ML NEB HHN SCH ×2 (09:30→10:15)
[2020-04-28] MEDS: IPRATROPIUM/ALBUTEROL 0.5-3(2.5)MG/3ML NEB HHN SCH ×3 (09:30→15:30)
[2020-04-28] MEDS: HYDROCHLOROTHIAZIDE 25MG TABLET PO SCH (09:37)
[2020-04-28 12:00] VITALS: BP 118/68
[2020-04-28] MEDS: MORPHINE SULFATE 4 MG/ML CPJ (NOT FOR IM USE) IV PRN ×2 (14:35→20:47)
[2020-04-28 16:00] VITALS: BP 114/72
[2020-04-28 20:00] VITALS: BP 115/70
[2020-04-28] MEDS: CLONAZEPAM 1MG TABLET PO SCH (21:54)
[2020-04-29] VITALS (41 sets, daily range): BP systolic 51–183; BP diastolic 45–140
[2020-04-29] MEDS: OXYCODONE HCL/ACETAMINOPHEN 5/325MG TABLET PO PRN ×2 (00:19→06:47)
[2020-04-29] MEDS: THROAT LOZENGES-BENZOCAINE/MENTH/CETYLPYRD CL LOZENGES MM SCH ×3 (00:26→18:00)
[2020-04-29] MEDS: MORPHINE SULFATE 4 MG/ML CPJ (NOT FOR IM USE) IV PRN ×3 (04:38→21:55)
[2020-04-29 05:57] LABS: CHLORIDE 102 mEq/L (98-107)
[2020-04-29 06:02] LABS: HEMATOCRIT. 26.7 % (36.0-48.0); HEMOGLOBIN. 8.8 g/dL (12.0-16.0); MEAN CORPUSCULAR HEMOGLOBIN 29.5 pg (28.0-32.0); MEAN CORPUSCULAR VOLUME 89.8 fL (81.0-99.0); PLATELET 270 x1000/uL (130-400); RED BLOOD CELL COUNT 2.98 mill/uL (4.2-5.4); RED CELL DISTRIBUTION WIDTH 19.9 % (11.6-14.6)
[2020-04-29] MEDS: GABAPENTIN 400MG CAPSULE PO SCH ×3 (06:39→21:41)
[2020-04-29] MEDS: OMEPRAZOLE 20MG CAPSULE EXTENDED RELEASE PO SCH (06:39)
[2020-04-29] MEDS: LEVOTHYROXINE SODIUM 75MCG TABLET PO SCH (06:39)
[2020-04-29] MEDS ORDERED: NICARDIPINE 100 MG in SODIUM CHLORIDE 0.9% 60 ML IV PRN (09:15)
[2020-04-29] MEDS ORDERED: LIDOCAINE HCL/EPINEPHRINE 1%-EPI 1:100,000 20 ML VIAL ONE (09:39)
[2020-04-29] MEDS ORDERED: THROMBIN (BOVINE) 5000 UNITS/VIAL TOP ONE ×2 (09:44→11:32)
[2020-04-29] MEDS ORDERED: BACITRACIN 50,000 UNITS/VIAL ONE (09:45)
[2020-04-29] MEDS ORDERED: ROCURONIUM BROMIDE 10MG/ML VIAL 5ML IV ONE ×2 (09:56→09:59)
[2020-04-29] MEDS ORDERED: NEOSTIGMINE METHYLSULFATE 1MG/ML 10 ML VIAL ONE (09:56)
[2020-04-29] MEDS ORDERED: FENTANYL CITRATE/PF 50MCG/ML 2ML VIAL ONE (09:56)
[2020-04-29] MEDS ORDERED: PROPOFOL 200MG/20ML VIAL IV ONE (09:56)
[2020-04-29] MEDS ORDERED: GLYCOPYRROLATE 0.2 MG/ML 2ML VIAL ONE (09:57)
[2020-04-29] MEDS ORDERED: MIDAZOLAM HCL 2 MG/2 ML VIAL ONE (09:57)
[2020-04-29] MEDS ORDERED: ONDANSETRON HCL 4MG/2ML INJ ONE (09:58)
[2020-04-29] MEDS ORDERED: DEXAMETHASONE 4MG/ML 1ML VIAL ONE (09:58)
[2020-04-29] MEDS ORDERED: HYDROMORPHONE HCL/PF 2MG/ML (OR) ONE (10:49)
[2020-04-29] MEDS ORDERED: ONDANSETRON INJ IV PRN (13:00)
[2020-04-29] MEDS ORDERED: NALOXONE INJ IV PRN (13:00)
[2020-04-29] MEDS ORDERED: DIPHENHYDRAMINE INJ IV PRN (13:00)
[2020-04-29] MEDS: HYDROMORPHONE PCA 10MG/50ML IV PRN (13:22)
[2020-04-29] MEDS ORDERED: CEFAZOLIN SODIUM 1000MG/VIAL IV SCH (14:00)
[2020-04-29] MEDS: CEFAZOLIN 1000MG PREMIX 50 ML IV SCH ×2 (14:00→22:07)
[2020-04-29 14:41] LABS: NUCLEATED RED BLOOD CELLS 1 /100 WBC; PLATELET ESTIMATE NORMAL
[2020-04-29] MEDS: PREDNISONE 5MG TABLET PO SCH ×2 (16:55→17:00)
[2020-04-29] MEDS: DEXT 5%/LACTATED RINGERS 1,000 ML IV SCH ×2 (16:55→17:15)
[2020-04-29] MEDS: NAPROXEN 250MG TABLET PO SCH (21:42)
[2020-04-29] MEDS: CLONAZEPAM 0.5MG TABLET PO SCH (21:42)
[2020-04-29] MEDS: HYDROXYCHLOROQUINE SULFATE 200MG TABLET PO SCH (21:43)
[2020-04-29] MEDS: NYSTATIN POWDER 15GM TOP SCH (21:44)
[2020-04-29] MEDS ORDERED: CLONAZEPAM 0.5MG TABLET PO SCH (22:15)
[2020-04-29] MEDS ORDERED: CLONAZEPAM 0.5MG TABLET PO ONE (22:15)
[2020-04-30] VITALS (58 sets, daily range): BP systolic 63–148; BP diastolic 29–100
[2020-04-30] MEDS: DEXT 5%/LACTATED RINGERS 1,000 ML IV SCH (00:37)
[2020-04-30] MEDS: THROAT LOZENGES-BENZOCAINE/MENTH/CETYLPYRD CL LOZENGES MM SCH ×4 (00:37→17:39)
[2020-04-30] MEDS: MORPHINE SULFATE 4 MG/ML CPJ (NOT FOR IM USE) IV PRN ×9 (01:19→23:12)
[2020-04-30 05:31] LABS: CHLORIDE 104 mEq/L (98-107)
[2020-04-30 05:32] LABS: MEAN CORPUSCULAR HEMOGLOBIN 30.6 pg (28.0-32.0); MEAN CORPUSCULAR VOLUME 89.1 fL (81.0-99.0); MEAN PLATELET VOLUME 7.9 fl (7.4-10.4); PLATELET 243 x1000/uL (130-400); RED BLOOD CELL COUNT 2.28 mill/uL (4.2-5.4); RED CELL DISTRIBUTION WIDTH 20.1 % (11.6-14.6)
[2020-04-30] MEDS: GABAPENTIN 400MG CAPSULE PO SCH ×3 (06:18→21:29)
[2020-04-30] MEDS: PREDNISONE 5MG TABLET PO SCH ×2 (06:18→17:39)
[2020-04-30] MEDS: CEFAZOLIN 1000MG PREMIX 50 ML IV SCH ×2 (06:18→14:22)
[2020-04-30] MEDS: LEVOTHYROXINE SODIUM 75MCG TABLET PO SCH (06:18)
[2020-04-30] MEDS: OMEPRAZOLE 20MG CAPSULE EXTENDED RELEASE PO SCH (06:18)
[2020-04-30 06:32] LABS: HEMATOCRIT. 20.4 % (36.0-48.0)
[2020-04-30] MEDS: MULTIVITAMINS,THER W-MINERALS TABLET PO SCH (08:06)
[2020-04-30] MEDS: NAPROXEN 250MG TABLET PO SCH ×2 (08:06→21:28)
[2020-04-30] MEDS: HYDROXYCHLOROQUINE SULFATE 200MG TABLET PO SCH ×2 (08:07→21:29)
[2020-04-30] MEDS: LIDOCAINE 5% PATCH TOP SCH (08:07)
[2020-04-30] MEDS: NYSTATIN POWDER 15GM TOP SCH ×2 (08:08→21:54)
[2020-04-30] MEDS: FLUOXETINE HCL 20MG CAPSULE PO SCH (08:08)
[2020-04-30] MEDS: DOCUSATE SODIUM 250MG CAPSULE PO SCH (08:08)
[2020-04-30] MEDS: LORATADINE 10MG TABLET PO SCH ×2 (08:11→09:02)
[2020-04-30] MEDS: HYDROCHLOROTHIAZIDE 25MG TABLET PO SCH (08:14)
[2020-04-30] MEDS: POLYETHYLENE GLYCOL 3350 (17GM) 1 DOSE PACK PO SCH (08:38)
[2020-04-30] MEDS: LACTULOSE 20G/30ML UDC PO PRN ×2 (08:38→21:29)
[2020-04-30] MEDS: HYDROMORPHONE PCA 10MG/50ML IV PRN (09:02)
[2020-04-30] MEDS: IPRATROPIUM/ALBUTEROL 0.5-3(2.5)MG/3ML NEB HHN SCH ×2 (09:09→09:17)
[2020-04-30 09:12] LABS: PLATELET ESTIMATE NORMAL
[2020-04-30] MEDS: CLONAZEPAM 0.5MG TABLET PO SCH ×2 (09:32→21:54)
[2020-04-30] MEDS: BUDESONIDE 0.5MG/2ML NEB HHN SCH (20:10)
[2020-04-30] MEDS: OXYCODONE HCL/ACETAMINOPHEN 5/325MG TABLET PO PRN ×3 (20:15→21:33)
[2020-04-30] MEDS ORDERED: CLONAZEPAM 0.5MG TABLET PO SCH ×2 (21:00)
[2020-05-01 00:02] VITALS: BP 128/69
[2020-05-01] MEDS: HYDROMORPHONE PCA 10MG/50ML IV PRN (00:11)
[2020-05-01] MEDS: THROAT LOZENGES-BENZOCAINE/MENTH/CETYLPYRD CL LOZENGES MM SCH ×4 (00:14→18:50)
[2020-05-01] MEDS ORDERED: IPRATROPIUM/ALBUTEROL 0.5-3(2.5)MG/3ML NEB ONE (00:18)
[2020-05-01] MEDS: MORPHINE SULFATE 4 MG/ML CPJ (NOT FOR IM USE) IV PRN ×9 (01:22→21:01)
[2020-05-01 04:00] VITALS: BP 128/65
[2020-05-01] MEDS: GABAPENTIN 400MG CAPSULE PO SCH ×3 (05:55→23:18)
[2020-05-01] MEDS: OMEPRAZOLE 20MG CAPSULE EXTENDED RELEASE PO SCH (06:26)
[2020-05-01] MEDS: LEVOTHYROXINE SODIUM 75MCG TABLET PO SCH (06:27)
[2020-05-01 08:00] VITALS: BP 123/65
[2020-05-01 08:12] LABS: HEMATOCRIT. 24.1 % (36.0-48.0); HEMOGLOBIN. 8.3 g/dL (12.0-16.0); MEAN CORPUSCULAR HEMOGLOBIN 30.4 pg (28.0-32.0); MEAN CORPUSCULAR VOLUME 88.6 fL (81.0-99.0); PLATELET 243 x1000/uL (130-400); RED BLOOD CELL COUNT 2.72 mill/uL (4.2-5.4); RED CELL DISTRIBUTION WIDTH 18.5 % (11.6-14.6)
[2020-05-01 08:28] LABS: CHLORIDE 99 mEq/L (98-107)
[2020-05-01] MEDS: MULTIVITAMINS,THER W-MINERALS TABLET PO SCH (08:31)
[2020-05-01] MEDS: HYDROXYCHLOROQUINE SULFATE 200MG TABLET PO SCH ×2 (08:31→22:58)
[2020-05-01] MEDS: LORATADINE 10MG TABLET PO SCH (08:32)
[2020-05-01] MEDS: CLONAZEPAM 0.5MG TABLET PO SCH ×2 (08:32→22:59)
[2020-05-01] MEDS: NAPROXEN 250MG TABLET PO SCH ×2 (08:33→22:57)
[2020-05-01] MEDS: HYDROCHLOROTHIAZIDE 25MG TABLET PO SCH (08:33)
[2020-05-01] MEDS: DOCUSATE SODIUM 250MG CAPSULE PO SCH (08:33)
[2020-05-01] MEDS: PREDNISONE 5MG TABLET PO SCH ×2 (08:33→18:49)
[2020-05-01] MEDS: FLUOXETINE HCL 20MG CAPSULE PO SCH (08:34)
[2020-05-01] MEDS: POLYETHYLENE GLYCOL 3350 (17GM) 1 DOSE PACK PO SCH (08:34)
[2020-05-01] MEDS: LIDOCAINE 5% PATCH TOP SCH (08:36)
[2020-05-01] MEDS: NYSTATIN POWDER 15GM TOP SCH ×2 (09:00→21:00)
[2020-05-01] MEDS: LACTULOSE 20G/30ML UDC PO PRN (09:02)
[2020-05-01] MEDS: IPRATROPIUM/ALBUTEROL 0.5-3(2.5)MG/3ML NEB HHN SCH (09:15)
[2020-05-01] MEDS: BUDESONIDE 0.5MG/2ML NEB HHN SCH (09:18)
[2020-05-01 12:00] VITALS: BP 122/64
[2020-05-01 13:40] LABS: PLATELET ESTIMATE NORMAL
[2020-05-01 16:00] VITALS: BP 111/70
[2020-05-01 20:27] VITALS: BP 111/70
[2020-05-01] MEDS: OXYCODONE HCL/ACETAMINOPHEN 5/325MG TABLET PO PRN (22:58)
[2020-05-01] MEDS: FAMOTIDINE 20MG TABLET PO SCH (23:13)
[2020-05-02] VITALS: BP 114/62
[2020-05-02] MEDS: MORPHINE SULFATE 4 MG/ML CPJ (NOT FOR IM USE) IV PRN ×8 (00:22→23:40)
[2020-05-02 04:00] VITALS: BP 103/57
[2020-05-02] MEDS: FAMOTIDINE 20MG TABLET PO SCH (06:31)
[2020-05-02] MEDS: THROAT LOZENGES-BENZOCAINE/MENTH/CETYLPYRD CL LOZENGES MM SCH ×5 (06:35→22:59)
[2020-05-02] MEDS: LEVOTHYROXINE SODIUM 75MCG TABLET PO SCH (06:56)
[2020-05-02 07:27] LABS: HEMATOCRIT. 23.3 % (36.0-48.0); HEMOGLOBIN. 7.7 g/dL (12.0-16.0); MEAN CORPUSCULAR HEMOGLOBIN 29.6 pg (28.0-32.0); MEAN CORPUSCULAR VOLUME 89.2 fL (81.0-99.0); MEAN PLATELET VOLUME 8.1 fl (7.4-10.4); PLATELET 221 x1000/uL (130-400); RED BLOOD CELL COUNT 2.61 mill/uL (4.2-5.4); RED CELL DISTRIBUTION WIDTH 18.4 % (11.6-14.6)
[2020-05-02 08:00] VITALS: BP 116/69
[2020-05-02] MEDS: NYSTATIN POWDER 15GM TOP SCH ×2 (09:00→21:26)
[2020-05-02] MEDS: FLUOXETINE HCL 20MG CAPSULE PO SCH (09:18)
[2020-05-02] MEDS: DOCUSATE SODIUM 250MG CAPSULE PO SCH (09:18)
[2020-05-02] MEDS: NAPROXEN 250MG TABLET PO SCH ×2 (09:19→21:26)
[2020-05-02] MEDS: HYDROCHLOROTHIAZIDE 25MG TABLET PO SCH (09:19)
[2020-05-02] MEDS: PREDNISONE 5MG TABLET PO SCH ×2 (09:19→18:01)
[2020-05-02] MEDS: MULTIVITAMINS,THER W-MINERALS TABLET PO SCH (09:19)
[2020-05-02] MEDS: LORATADINE 10MG TABLET PO SCH (09:20)
[2020-05-02] MEDS: CLONAZEPAM 0.5MG TABLET PO SCH ×2 (09:20→21:25)
[2020-05-02] MEDS: LIDOCAINE 5% PATCH TOP SCH (09:20)
[2020-05-02] MEDS: POLYETHYLENE GLYCOL 3350 (17GM) 1 DOSE PACK PO SCH (09:20)
[2020-05-02] MEDS: HYDROXYCHLOROQUINE SULFATE 200MG TABLET PO SCH ×2 (09:20→21:26)
[2020-05-02] MEDS: LACTULOSE 20G/30ML UDC PO PRN ×2 (09:30→22:59)
[2020-05-02] MEDS: GABAPENTIN 400MG CAPSULE PO SCH ×3 (11:15→21:25)
[2020-05-02] MEDS: OXYCODONE HCL/ACETAMINOPHEN 5/325MG TABLET PO PRN ×2 (11:16→18:37)
[2020-05-02 12:00] VITALS: BP 125/72
[2020-05-02 16:00] VITALS: BP 117/64
[2020-05-02 16:20] LABS: PLATELET ESTIMATE NORMAL
[2020-05-02 20:00] VITALS: BP 102/60
[2020-05-02] MEDS: BUDESONIDE 0.5MG/2ML NEB HHN SCH (21:11)
[2020-05-02] MEDS: IPRATROPIUM/ALBUTEROL 0.5-3(2.5)MG/3ML NEB HHN SCH (21:11)
[2020-05-02] MEDS: CEFEPIME 2,000 MG in DEXT 5% WATER 100 ML IV SCH (23:38)
[2020-05-03] VITALS: BP 113/70
[2020-05-03] MEDS: MORPHINE SULFATE 4 MG/ML CPJ (NOT FOR IM USE) IV PRN ×3 (03:48→10:23)
[2020-05-03 04:00] VITALS: BP 107/69
[2020-05-03] MEDS: LEVOTHYROXINE SODIUM 75MCG TABLET PO SCH (06:12)
[2020-05-03] MEDS: GABAPENTIN 400MG CAPSULE PO SCH ×3 (06:12→21:00)
[2020-05-03] MEDS: OMEPRAZOLE 20MG CAPSULE EXTENDED RELEASE PO SCH (06:12)
[2020-05-03] MEDS: THROAT LOZENGES-BENZOCAINE/MENTH/CETYLPYRD CL LOZENGES MM SCH ×4 (06:14→23:00)
[2020-05-03] MEDS: OXYCODONE HCL/ACETAMINOPHEN 5/325MG TABLET PO PRN ×4 (06:17→20:53)
[2020-05-03 08:00] VITALS: BP 111/67
[2020-05-03 08:08] LABS: HEMATOCRIT 23.7 % (36.0-48.0); HEMOGLOBIN 7.9 g/dL (12.0-16.0)
[2020-05-03] MEDS: CEFEPIME 2,000 MG in DEXT 5% WATER 100 ML IV SCH (09:12)
[2020-05-03] MEDS: HYDROCHLOROTHIAZIDE 25MG TABLET PO SCH (09:13)
[2020-05-03] MEDS: MULTIVITAMINS,THER W-MINERALS TABLET PO SCH (09:13)
[2020-05-03] MEDS: CLONAZEPAM 0.5MG TABLET PO SCH ×2 (09:13→20:51)
[2020-05-03] MEDS: LIDOCAINE 5% PATCH TOP SCH (09:13)
[2020-05-03] MEDS: FLUOXETINE HCL 20MG CAPSULE PO SCH (09:13)
[2020-05-03] MEDS: POLYETHYLENE GLYCOL 3350 (17GM) 1 DOSE PACK PO SCH (09:13)
[2020-05-03] MEDS: LORATADINE 10MG TABLET PO SCH (09:14)
[2020-05-03] MEDS: NYSTATIN POWDER 15GM TOP SCH ×2 (09:14→20:53)
[2020-05-03] MEDS: NAPROXEN 250MG TABLET PO SCH ×2 (09:14→20:50)
[2020-05-03] MEDS: PREDNISONE 5MG TABLET PO SCH ×2 (09:14→17:32)
[2020-05-03] MEDS: DOCUSATE SODIUM 250MG CAPSULE PO SCH (09:14)
[2020-05-03] MEDS: HYDROXYCHLOROQUINE SULFATE 200MG TABLET PO SCH ×2 (09:14→20:50)
[2020-05-03] MEDS: LACTULOSE 20G/30ML UDC PO PRN ×2 (09:34→21:33)
[2020-05-03 12:00] VITALS: BP 111/73
[2020-05-03 16:00] VITALS: BP 102/61
[2020-05-03] MEDS: MEROPENEM 1,000 MG in SODIUM CHLORIDE 0.9% 100 ML IV SCH ×2 (16:45→23:00)
[2020-05-03] MEDS: MORPHINE SULFATE 15MG TABLET SR PO SCH ×2 (16:52→18:46)
[2020-05-03 20:00] VITALS: BP 117/71
[2020-05-03] MEDS: BUDESONIDE 0.5MG/2ML NEB HHN SCH (20:25)
[2020-05-03] MEDS: IPRATROPIUM/ALBUTEROL 0.5-3(2.5)MG/3ML NEB HHN SCH (20:25)
[2020-05-04] VITALS: BP 111/72
[2020-05-04] MEDS: OXYCODONE HCL/ACETAMINOPHEN 5/325MG TABLET PO PRN ×6 (02:16→22:24)
[2020-05-04 04:00] VITALS: BP 116/68
[2020-05-04] MEDS: GABAPENTIN 400MG CAPSULE PO SCH ×3 (06:20→21:56)
[2020-05-04] MEDS: LEVOTHYROXINE SODIUM 75MCG TABLET PO SCH (06:20)
[2020-05-04] MEDS: OMEPRAZOLE 20MG CAPSULE EXTENDED RELEASE PO SCH (06:20)
[2020-05-04] MEDS: THROAT LOZENGES-BENZOCAINE/MENTH/CETYLPYRD CL LOZENGES MM SCH ×3 (06:23→17:10)
[2020-05-04] MEDS: BUDESONIDE 0.5MG/2ML NEB HHN SCH ×2 (07:52→22:29)
[2020-05-04] MEDS: IPRATROPIUM/ALBUTEROL 0.5-3(2.5)MG/3ML NEB HHN SCH ×2 (07:52→22:18)
[2020-05-04 08:00] VITALS: BP 118/72
[2020-05-04] MEDS: NYSTATIN POWDER 15GM TOP SCH ×2 (09:00→21:58)
[2020-05-04] MEDS: PREDNISONE 5MG TABLET PO SCH ×2 (09:51→17:01)
[2020-05-04] MEDS: FLUOXETINE HCL 20MG CAPSULE PO SCH (09:51)
[2020-05-04] MEDS: MULTIVITAMINS,THER W-MINERALS TABLET PO SCH (09:51)
[2020-05-04] MEDS: POLYETHYLENE GLYCOL 3350 (17GM) 1 DOSE PACK PO SCH (09:51)
[2020-05-04] MEDS: MORPHINE SULFATE 15MG TABLET SR PO SCH ×2 (09:52→17:01)
[2020-05-04] MEDS: LORATADINE 10MG TABLET PO SCH (09:52)
[2020-05-04] MEDS: HYDROCHLOROTHIAZIDE 25MG TABLET PO SCH (09:52)
[2020-05-04] MEDS: NAPROXEN 250MG TABLET PO SCH ×2 (09:52→21:57)
[2020-05-04] MEDS: LIDOCAINE 5% PATCH TOP SCH (09:53)
[2020-05-04] MEDS: DOCUSATE SODIUM 250MG CAPSULE PO SCH (09:53)
[2020-05-04] MEDS: HYDROXYCHLOROQUINE SULFATE 200MG TABLET PO SCH ×2 (09:53→21:56)
[2020-05-04] MEDS: CLONAZEPAM 0.5MG TABLET PO SCH ×2 (10:06→21:56)
[2020-05-04] MEDS: MEROPENEM 1,000 MG in SODIUM CHLORIDE 0.9% 100 ML IV SCH ×2 (10:17→17:02)
[2020-05-04 16:00] VITALS: BP 110/72
[2020-05-04 20:00] VITALS: BP 122/76
[2020-05-04] MEDS: LACTULOSE 20G/30ML UDC PO PRN (21:57)
[2020-05-05] VITALS: BP 124/77
[2020-05-05] MEDS: MEROPENEM 1,000 MG in SODIUM CHLORIDE 0.9% 100 ML IV SCH ×4 (00:47→23:21)
[2020-05-05] MEDS: THROAT LOZENGES-BENZOCAINE/MENTH/CETYLPYRD CL LOZENGES MM SCH ×5 (00:48→23:21)
[2020-05-05] MEDS: OXYCODONE HCL/ACETAMINOPHEN 5/325MG TABLET PO PRN ×6 (02:36→23:35)
[2020-05-05 04:00] VITALS: BP 123/69
[2020-05-05] MEDS: GABAPENTIN 400MG CAPSULE PO SCH ×3 (06:28→21:08)
[2020-05-05] MEDS: OMEPRAZOLE 20MG CAPSULE EXTENDED RELEASE PO SCH (06:28)
[2020-05-05] MEDS: LEVOTHYROXINE SODIUM 75MCG TABLET PO SCH (06:29)
[2020-05-05 08:00] VITALS: BP 105/62
[2020-05-05] MEDS: LIDOCAINE 5% PATCH TOP SCH (08:27)
[2020-05-05] MEDS: LORATADINE 10MG TABLET PO SCH (08:28)
[2020-05-05] MEDS: POLYETHYLENE GLYCOL 3350 (17GM) 1 DOSE PACK PO SCH (08:28)
[2020-05-05] MEDS: CLONAZEPAM 0.5MG TABLET PO SCH ×2 (08:28→21:59)
[2020-05-05] MEDS: MORPHINE SULFATE 15MG TABLET SR PO SCH (08:29)
[2020-05-05] MEDS: NAPROXEN 250MG TABLET PO SCH ×2 (08:30→21:08)
[2020-05-05] MEDS: HYDROCHLOROTHIAZIDE 25MG TABLET PO SCH (08:36)
[2020-05-05] MEDS: MULTIVITAMINS,THER W-MINERALS TABLET PO SCH (08:36)
[2020-05-05] MEDS: PREDNISONE 5MG TABLET PO SCH ×2 (08:36→17:54)
[2020-05-05] MEDS: FLUOXETINE HCL 20MG CAPSULE PO SCH (08:37)
[2020-05-05] MEDS: DOCUSATE SODIUM 250MG CAPSULE PO SCH (08:37)
[2020-05-05] MEDS: HYDROXYCHLOROQUINE SULFATE 200MG TABLET PO SCH ×2 (08:37→21:08)
[2020-05-05] MEDS: LACTULOSE 20G/30ML UDC PO PRN (09:05)
[2020-05-05] MEDS: NYSTATIN POWDER 15GM TOP SCH ×2 (09:11→23:21)
[2020-05-05] MEDS: IPRATROPIUM/ALBUTEROL 0.5-3(2.5)MG/3ML NEB HHN SCH ×2 (10:32→20:40)
[2020-05-05] MEDS: BUDESONIDE 0.5MG/2ML NEB HHN SCH ×2 (10:33→20:45)
[2020-05-05 12:00] VITALS: BP 114/64
[2020-05-05] MEDS ORDERED: MORPHINE SULFATE 15MG TABLET SR PO SCH (12:45)
[2020-05-05 13:27] LABS: HEMATOCRIT 25.2 % (36.0-48.0); HEMOGLOBIN 8.5 g/dL (12.0-16.0); MEAN CORPUSCULAR HEMOGLOBIN 30.1 pg (28.0-32.0); MEAN CORPUSCULAR VOLUME 89.5 fL (81.0-99.0); PLATELET 298 x1000/uL (130-400); RED BLOOD CELL COUNT 2.81 mill/uL (4.2-5.4); RED CELL DISTRIBUTION WIDTH 18.2 % (11.6-14.6)
[2020-05-05 13:34] LABS: PROTHROMBIN TIME 10.5 sec (9.6-11.0)
[2020-05-05 13:35] LABS: CHLORIDE 105 mEq/L (98-107)
[2020-05-05 16:00] VITALS: BP 120/76
[2020-05-05] MEDS ORDERED: ENOXAPARIN 100MG/ML SYR SUBCUT SCH (18:00)
[2020-05-05 20:00] VITALS: BP 105/62
[2020-05-05] MEDS: MORPHINE SULFATE 30MG TABLET SR PO SCH (21:09)
[2020-05-05] MEDS: ENOXAPARIN 30MG/0.3ML SYR SUBCUT SCH (21:11)
[2020-05-06] VITALS: BP 121/71
[2020-05-06 04:00] VITALS: BP 115/67
[2020-05-06] MEDS: OXYCODONE HCL/ACETAMINOPHEN 5/325MG TABLET PO PRN ×5 (04:00→20:42)
[2020-05-06] MEDS: LEVOTHYROXINE SODIUM 75MCG TABLET PO SCH (06:44)
[2020-05-06] MEDS: GABAPENTIN 400MG CAPSULE PO SCH ×3 (06:44→22:07)
[2020-05-06] MEDS: OMEPRAZOLE 20MG CAPSULE EXTENDED RELEASE PO SCH (06:44)
[2020-05-06] MEDS: THROAT LOZENGES-BENZOCAINE/MENTH/CETYLPYRD CL LOZENGES MM SCH ×3 (06:45→17:36)
[2020-05-06 08:00] VITALS: BP 112/64
[2020-05-06] MEDS: POLYETHYLENE GLYCOL 3350 (17GM) 1 DOSE PACK PO SCH (08:09)
[2020-05-06] MEDS: FLUOXETINE HCL 20MG CAPSULE PO SCH (08:10)
[2020-05-06] MEDS: LIDOCAINE 5% PATCH TOP SCH (08:10)
[2020-05-06] MEDS: MORPHINE SULFATE 30MG TABLET SR PO SCH ×2 (08:11→22:07)
[2020-05-06] MEDS: DOCUSATE SODIUM 250MG CAPSULE PO SCH (08:11)
[2020-05-06] MEDS: HYDROCHLOROTHIAZIDE 25MG TABLET PO SCH (08:11)
[2020-05-06] MEDS: PREDNISONE 5MG TABLET PO SCH ×2 (08:11→17:35)
[2020-05-06] MEDS: HYDROXYCHLOROQUINE SULFATE 200MG TABLET PO SCH ×2 (08:11→22:09)
[2020-05-06] MEDS: MEROPENEM 1,000 MG in SODIUM CHLORIDE 0.9% 100 ML IV SCH ×2 (08:12→16:14)
[2020-05-06] MEDS: MULTIVITAMINS,THER W-MINERALS TABLET PO SCH (08:12)
[2020-05-06] MEDS: NAPROXEN 250MG TABLET PO SCH ×2 (08:12→22:07)
[2020-05-06] MEDS: LORATADINE 10MG TABLET PO SCH (08:12)
[2020-05-06] MEDS: ENOXAPARIN 30MG/0.3ML SYR SUBCUT SCH ×2 (08:12→22:09)
[2020-05-06] MEDS: LACTULOSE 20G/30ML UDC PO PRN (08:46)
[2020-05-06] MEDS: CLONAZEPAM 0.5MG TABLET PO SCH (08:46)
[2020-05-06] MEDS: NYSTATIN POWDER 15GM TOP SCH ×2 (08:47→22:08)
[2020-05-06] MEDS: IPRATROPIUM/ALBUTEROL 0.5-3(2.5)MG/3ML NEB HHN SCH ×2 (09:02→21:14)
[2020-05-06] MEDS: BUDESONIDE 0.5MG/2ML NEB HHN SCH ×2 (09:02→21:14)
[2020-05-06 12:00] VITALS: BP 110/53
[2020-05-06 16:00] VITALS: BP_SYST 112; BP_SYST 116; BP_DIAS 62; BP_DIAS 67
[2020-05-06 20:00] VITALS: BP 120/63
[2020-05-06] MEDS: CLONAZEPAM 1MG TABLET PO SCH (22:07)
[2020-05-07] VITALS: BP 110/64
[2020-05-07] MEDS: MEROPENEM 1,000 MG in SODIUM CHLORIDE 0.9% 100 ML IV SCH ×4 (00:27→23:51)
[2020-05-07] MEDS: THROAT LOZENGES-BENZOCAINE/MENTH/CETYLPYRD CL LOZENGES MM SCH ×5 (00:27→23:51)
[2020-05-07] MEDS: OXYCODONE HCL/ACETAMINOPHEN 5/325MG TABLET PO PRN ×6 (00:44→22:30)
[2020-05-07 04:00] VITALS: BP 113/66
[2020-05-07] MEDS: GABAPENTIN 400MG CAPSULE PO SCH ×3 (06:01→21:27)
[2020-05-07] MEDS: OMEPRAZOLE 20MG CAPSULE EXTENDED RELEASE PO SCH (06:02)
[2020-05-07] MEDS: LEVOTHYROXINE SODIUM 75MCG TABLET PO SCH (06:02)
[2020-05-07] MEDS: PREDNISONE 5MG TABLET PO SCH ×2 (08:29→16:50)
[2020-05-07] MEDS: HYDROCHLOROTHIAZIDE 25MG TABLET PO SCH (08:30)
[2020-05-07] MEDS: DOCUSATE SODIUM 250MG CAPSULE PO SCH (08:30)
[2020-05-07] MEDS: LORATADINE 10MG TABLET PO SCH (08:30)
[2020-05-07] MEDS: CLONAZEPAM 0.5MG TABLET PO SCH (08:31)
[2020-05-07] MEDS: POLYETHYLENE GLYCOL 3350 (17GM) 1 DOSE PACK PO SCH (08:31)
[2020-05-07] MEDS: HYDROXYCHLOROQUINE SULFATE 200MG TABLET PO SCH ×2 (08:32→21:27)
[2020-05-07] MEDS: MULTIVITAMINS,THER W-MINERALS TABLET PO SCH (08:32)
[2020-05-07] MEDS: MORPHINE SULFATE 30MG TABLET SR PO SCH ×2 (08:32→21:27)
[2020-05-07] MEDS: FLUOXETINE HCL 20MG CAPSULE PO SCH (08:32)
[2020-05-07] MEDS: NAPROXEN 250MG TABLET PO SCH ×2 (08:32→21:27)
[2020-05-07] MEDS: ENOXAPARIN 30MG/0.3ML SYR SUBCUT SCH ×2 (08:33→21:28)
[2020-05-07] MEDS: LIDOCAINE 5% PATCH TOP SCH (08:33)
[2020-05-07] MEDS: NYSTATIN POWDER 15GM TOP SCH ×2 (08:33→21:28)
[2020-05-07] MEDS: LACTULOSE 20G/30ML UDC PO PRN (08:37)
[2020-05-07] MEDS: IPRATROPIUM/ALBUTEROL 0.5-3(2.5)MG/3ML NEB HHN SCH ×2 (09:44→21:54)
[2020-05-07] MEDS: BUDESONIDE 0.5MG/2ML NEB HHN SCH ×2 (09:44→21:55)
[2020-05-07 12:00] VITALS: BP 104/61
[2020-05-07 16:00] VITALS: BP 123/74
[2020-05-07] MEDS: BACLOFEN 10MG TABLET PO PRN (17:52)
[2020-05-07 20:24] VITALS: BP 108/53
[2020-05-07] MEDS: CLONAZEPAM 1MG TABLET PO SCH (21:27)
[2020-05-08] VITALS: BP 107/62
[2020-05-08 04:00] VITALS: BP 116/68
[2020-05-08] MEDS: OXYCODONE HCL/ACETAMINOPHEN 5/325MG TABLET PO PRN ×5 (04:16→21:33)
[2020-05-08] MEDS: GABAPENTIN 400MG CAPSULE PO SCH ×3 (06:03→21:14)
[2020-05-08] MEDS: LEVOTHYROXINE SODIUM 75MCG TABLET PO SCH (06:03)
[2020-05-08] MEDS: THROAT LOZENGES-BENZOCAINE/MENTH/CETYLPYRD CL LOZENGES MM SCH ×3 (06:04→17:03)
[2020-05-08] MEDS: OMEPRAZOLE 20MG CAPSULE EXTENDED RELEASE PO SCH (06:04)
[2020-05-08 08:00] VITALS: BP 111/73
[2020-05-08] MEDS: BUDESONIDE 0.5MG/2ML NEB HHN SCH (08:15)
[2020-05-08] MEDS: IPRATROPIUM/ALBUTEROL 0.5-3(2.5)MG/3ML NEB HHN SCH ×2 (08:15→21:40)
[2020-05-08] MEDS: HYDROCHLOROTHIAZIDE 25MG TABLET PO SCH (08:30)
[2020-05-08] MEDS: CLONAZEPAM 0.5MG TABLET PO SCH (08:30)
[2020-05-08] MEDS: FLUOXETINE HCL 20MG CAPSULE PO SCH (08:30)
[2020-05-08] MEDS: DOCUSATE SODIUM 250MG CAPSULE PO SCH (08:31)
[2020-05-08] MEDS: LORATADINE 10MG TABLET PO SCH (08:31)
[2020-05-08] MEDS: NAPROXEN 250MG TABLET PO SCH ×2 (08:31→21:14)
[2020-05-08] MEDS: HYDROXYCHLOROQUINE SULFATE 200MG TABLET PO SCH ×2 (08:31→21:16)
[2020-05-08] MEDS: MULTIVITAMINS,THER W-MINERALS TABLET PO SCH (08:31)
[2020-05-08] MEDS: PREDNISONE 5MG TABLET PO SCH ×2 (08:31→17:03)
[2020-05-08] MEDS: MEROPENEM 1,000 MG in SODIUM CHLORIDE 0.9% 100 ML IV SCH ×3 (08:32→21:19)
[2020-05-08] MEDS: LIDOCAINE 5% PATCH TOP SCH (08:32)
[2020-05-08] MEDS: ENOXAPARIN 30MG/0.3ML SYR SUBCUT SCH ×2 (08:33→21:16)
[2020-05-08] MEDS: NYSTATIN POWDER 15GM TOP SCH ×2 (08:33→21:00)
[2020-05-08] MEDS: POLYETHYLENE GLYCOL 3350 (17GM) 1 DOSE PACK PO SCH (10:02)
[2020-05-08] MEDS: MORPHINE SULFATE 30MG TABLET SR PO SCH ×2 (10:03→21:13)
[2020-05-08 12:00] VITALS: BP 123/73
[2020-05-08 16:00] VITALS: BP 111/60
[2020-05-08] MEDS: BACLOFEN 10MG TABLET PO PRN (16:35)
[2020-05-08 20:00] VITALS: BP 111/63
[2020-05-08] MEDS: CLONAZEPAM 1MG TABLET PO SCH (21:13)
[2020-05-09] VITALS: BP 101/68
[2020-05-09] MEDS: THROAT LOZENGES-BENZOCAINE/MENTH/CETYLPYRD CL LOZENGES MM SCH ×3 (00:13→11:14)
[2020-05-09] MEDS: OXYCODONE HCL/ACETAMINOPHEN 5/325MG TABLET PO PRN ×4 (03:00→15:21)
[2020-05-09 04:00] VITALS: BP 130/77
[2020-05-09] MEDS: MEROPENEM 1,000 MG in SODIUM CHLORIDE 0.9% 100 ML IV SCH ×2 (05:24→13:46)
[2020-05-09] MEDS: GABAPENTIN 400MG CAPSULE PO SCH ×2 (05:24→13:46)
[2020-05-09] MEDS: LEVOTHYROXINE SODIUM 75MCG TABLET PO SCH (06:30)
[2020-05-09] MEDS: OMEPRAZOLE 20MG CAPSULE EXTENDED RELEASE PO SCH (06:30)
[2020-05-09] MEDS: IPRATROPIUM/ALBUTEROL 0.5-3(2.5)MG/3ML NEB HHN SCH (07:52)
[2020-05-09] MEDS: BUDESONIDE 0.5MG/2ML NEB HHN SCH (07:53)
[2020-05-09 08:00] VITALS: BP 113/71
[2020-05-09] MEDS: MULTIVITAMINS,THER W-MINERALS TABLET PO SCH (08:24)
[2020-05-09] MEDS: ENOXAPARIN 30MG/0.3ML SYR SUBCUT SCH (08:24)
[2020-05-09] MEDS: CLONAZEPAM 0.5MG TABLET PO SCH (08:24)
[2020-05-09] MEDS: NAPROXEN 250MG TABLET PO SCH (08:24)
[2020-05-09] MEDS: DOCUSATE SODIUM 250MG CAPSULE PO SCH (08:24)
[2020-05-09] MEDS: HYDROXYCHLOROQUINE SULFATE 200MG TABLET PO SCH (08:24)
[2020-05-09] MEDS: LORATADINE 10MG TABLET PO SCH (08:24)
[2020-05-09] MEDS: PREDNISONE 5MG TABLET PO SCH (08:25)
[2020-05-09] MEDS: HYDROCHLOROTHIAZIDE 25MG TABLET PO SCH (08:25)
[2020-05-09] MEDS: FLUOXETINE HCL 20MG CAPSULE PO SCH (08:25)
[2020-05-09] MEDS: MORPHINE SULFATE 30MG TABLET SR PO SCH (08:26)
[2020-05-09] MEDS: POLYETHYLENE GLYCOL 3350 (17GM) 1 DOSE PACK PO SCH (08:26)
[2020-05-09] MEDS: NYSTATIN POWDER 15GM TOP SCH (08:29)
[2020-05-09] MEDS: LIDOCAINE 5% PATCH TOP SCH (08:29)
[2020-05-09 12:00] VITALS: BP 114/70
[2020-05-09] MEDS: BACLOFEN 10MG TABLET PO PRN (12:37)
[2020-05-09 14:32] VITALS: BP 114/70
[2020-05-09 15:21] VITALS: BP 114/70
== END 2020-05-09 18:00 | DRG 710 ==
LOC: ER 19:12 → EDBEDREQ 22:48 → EDBEDREQTM 22:48 → EDBEDREQSVC 22:48 → MICUSO 23:13 → EDBEDREQTM 23:17 → EDBEDREQ 23:17 → ENRESERV 23:58 → 7EST 04-03 13:18 → 6WST 04-14 22:55 → 6EST 04-17 14:08 → MICUNO 04-29 10:05 → 6EST 04-30 23:42
PROVIDERS: ADMIT Internal Medicine; ATTEND Internal Medicine
PROC: 5A1955Z Respiratory Ventilation, Greater than 96 Consecutive Hours (ICD-10-PCS; principal; 2020-03-27)
PROC: 0BH17EZ Insertion of Endotracheal Airway into Trachea, Via Natural or Artificial Opening (ICD-10-PCS; 2020-03-27)
PROC: 0SB20ZZ Excision of Lumbar Vertebral Disc, Open Approach (ICD-10-PCS; 2020-03-29)
PROC: B54MZZA Ultrasonography of Right Upper Extremity Veins, Guidance (ICD-10-PCS; 2020-03-29)
PROC: 05HY33Z Insertion of Infusion Device into Upper Vein, Percutaneous Approach (ICD-10-PCS; 2020-03-29)
PROC: 00NY0ZZ Release Lumbar Spinal Cord, Open Approach (ICD-10-PCS; 2020-04-29)
PROC: 30233N1 Transfusion of Nonautologous Red Blood Cells into Peripheral Vein, Percutaneous Approach (ICD-10-PCS; 2020-04-30)
DX: A41.89 Other specified sepsis (principal); U07.1 COVID-19; J96.01 Acute respiratory failure with hypoxia; E43 Unspecified severe protein-calorie malnutrition; G06.1 Intraspinal abscess and granuloma; J12.89 Other viral pneumonia; J44.0 Chronic obstructive pulmonary disease with (acute) lower respiratory infection; E87.2 Acidosis; E87.8 Other disorders of electrolyte and fluid balance, not elsewhere classified; R65.20 Severe sepsis without septic shock; D64.9 Anemia, unspecified; E87.6 Hypokalemia; E87.1 Hypo-osmolality and hyponatremia; E66.9 Obesity, unspecified; D72.810 Lymphocytopenia; I10 Essential (primary) hypertension; I73.00 Raynaud's syndrome without gangrene; G89.4 Chronic pain syndrome; J45.901 Unspecified asthma with (acute) exacerbation; M35.1 Other overlap syndromes; K59.00 Constipation, unspecified; M06.9 Rheumatoid arthritis, unspecified; M47.816 Spondylosis without myelopathy or radiculopathy, lumbar region; M48.061 Spinal stenosis, lumbar region without neurogenic claudication; M51.26 Other intervertebral disc displacement, lumbar region; Z74.01 Bed confinement status; Z79.52 Long term (current) use of systemic steroids; Z86.718 Personal history of other venous thrombosis and embolism; Z88.8 Allergy status to other drugs, medicaments and biological substances; Z68.35 Body mass index [BMI] 35.0-35.9, adult
CPT/HCPCS: 31500; 36415; 36600; 70551; 71045; 72100; 72141; 72142; 72146; 72147; 72148; 76000; 76937; 80048; 80053; 81003; 82164; 82375; 82550; 82728; 82805; 83520; 83605; 83615; 83735; 83880; 84100; 84134; 84145; 84478; 84484; 84550; 84703; 85014; 85018; 85025; 85027; 85379; 85613; 85732; 86140; 86147; 86160; 86225; 86235; 86256; 86431; 86592; 86780; 86850; 86900; 86920; 87070; 87075; 87077; 87186; 87635; 88304; 88311; 93005; 93306; 93971; 94640; 95863; 95925; 95926; 97110; 97116; 97162; 97164; 97166; 97168; 97530; 97535; 97760; 99291; A9577; C1725; C9113; J0456; J0690; J0692; J0696; J1100; J1170; J1650; J1940; J2185; J2250; J2270; J2405; J2543; J2704; J2710; J2920; J3010; J3370; J3480; J3490; J7050; J7060; J7121; J7512; J7626; P9016; U0003-CS

== ENCOUNTER 2020-05-13 14:36 | Emergency (ER) | payer OTHER ==
[~2020-05-13] VITALS: Ht 167.6 cm; Wt 89.0 kg
[~2020-05-13 14:36] MED LIST: BACL-141 PO; CLON1TAB PO; DOCU100T PO; FLUO40CA49 PO; FLUT1DIS6 INH; FLUT9.9S BOTHNSTRLS; GABA800T97 PO; HYDR200T80 PO; HYDR25TA PO; LACT10SO7 PO; LEVO75TA7 PO; LIDO700A30 TP; LORA10TA64 PO; MAGN200T5 PO; METO-385 PO; NAPR-681 PO; OMEP20CA14 PO; PRED10TA PO; SENN-155 PO
[2020-05-13] MEDS ORDERED: MORP30CP13 PO (14:44)
[2020-05-13] MEDS ORDERED: OXYC10TA48 PO (14:44)
[2020-05-13 15:51] LABS: HEMATOCRIT. 28.7 % (36.0-48.0); HEMOGLOBIN. 9.6 g/dL (12.0-16.0); MEAN CORPUSCULAR HEMOGLOBIN 29.3 pg (28.0-32.0); MEAN CORPUSCULAR VOLUME 87.7 fL (81.0-99.0); MEAN PLATELET VOLUME 7.8 fl (7.4-10.4); PLATELET 489 x1000/uL (130-400); RED BLOOD CELL COUNT 3.28 mill/uL (4.2-5.4); RED CELL DISTRIBUTION WIDTH 17.7 % (11.6-14.6)
[2020-05-13 15:58] LABS: PROTHROMBIN TIME 10.8 sec (9.6-11.0)
[2020-05-13 16:04] LABS: CHLORIDE 103 mEq/L (98-107)
[2020-05-13] MEDS ORDERED: MORPHINE SULFATE 4 MG/ML CPJ (NOT FOR IM USE) IV ONE ×2 (16:30→20:00)
[2020-05-13 17:03] LABS: PLATELET ESTIMATE SLIGHTLY INCREASED
[2020-05-13] MEDS ORDERED: ACETAMINOPHEN 325MG TABLET PO ONE (23:15)
[2020-05-14] MEDS ORDERED: HYDROCODONE/ACETAMINOPHEN 5/325MG TABLET PO ONE ×3 (09:00→18:45)
[2020-05-14 20:40] VITALS: BP 116/50
== END 2020-05-14 21:14 | disposition home or self-care (01) ==
LOC: ER 14:52
DX: M54.5 Low back pain (principal); K21.9 Gastro-esophageal reflux disease without esophagitis; Z91.018 Allergy to other foods; Z91.013 Allergy to seafood; Z88.6 Allergy status to analgesic agent; Z79.899 Other long term (current) drug therapy
CPT/HCPCS: 36415; 80053; 83605; 85025; 85610; 87040; 96374; 96376; 99285; J2270